=== PATIENT | male | born 1985 | race Caucasian/White ===

== ENCOUNTER 2018-07-25 16:19 | Emergency (ER) | payer SELFPAY ==
[2018-07-25] MEDS ORDERED: TETANUS & DIPHTHERIA TOX,ADULT 0.5 ML VIAL ONE (16:50)
--- NOTE | 2018-07-25 17:29 | RAD REPORT ---
EXAM DESCRIPTION: RAD - Knee Right 3 View - 07/25/2018 5:22 pm CLINICAL HISTORY: Right knee pain FINDINGS: No fracture or dislocation is seen. A laceration involves the medial soft tissues. A radiopaque foreign body is not seen
[2018-07-25] MEDS ORDERED: HYDROCODONE/APAP 10/325 TAB ONE (18:07)
[2018-07-25] MEDS ORDERED: BUPIVACAINE 0.5% PF 10 ML VIAL ONE (18:07)
[2018-07-25] MEDS ORDERED: LIDOCAINE 1% MPF 30 ML VIAL ONE (18:08)
[2018-07-25] MEDS ORDERED: LIDOCAINE 2% W/EPI 1:200,000 MPF 20 ML VIAL IM ONE (19:27)
--- NOTE | 2018-07-25 19:54 | ER ---
Nurse's Notes [facility] Emergency Department Name: Michael Degroot Age: 32 yrs Sex: Male : 1985 Arrival Date: 07/25/2018 Time: 16:20 Bed Treatment Private MD: Diagnosis: Laceration without foreign body, right lower leg Presentation: 07/25 16:25 Presenting complaint: Patient states: He was using a chain saw to cut a tree and it aj1 kicked back and hit him in the right knee approximately 1 hour ago. Laceration noted to right knee, bleeding lightly. Transition of care: patient was not received from another setting of care. Onset of symptoms was July 25, 2018 at 15:30. Risk Assessment: Do you want to hurt yourself or someone else? Patient reports no desire to harm self or others. Initial Sepsis Screen: Does the patient meet any 2 criteria? HR > 90 bpm. Does the patient have a suspected source of infection? Yes: Skin breakdown/wound. Care prior to arrival: None. 16:25 Method Of Arrival: Wheelchair aj1 16:25 Acuity: DARVIN 4 aj1 20:26 Complicating Factors: There are no complicating factors for this patient. bb Triage Assessment: 16:27 General: Appears in no apparent distress. uncomfortable, Behavior is calm, cooperative, aj1 appropriate for age. Pain: Complains of pain in right knee Pain currently is 8 out of 10 on a pain scale. Neuro: Level of Consciousness is awake, alert, obeys commands. Cardiovascular: Patient's skin is warm and dry. Respiratory: Airway is patent Respiratory effort is even, unlabored, Respiratory pattern is regular, symmetrical. Injury Description: Laceration sustained to right knee is bleeding a small amount. Historical: - Allergies: 16:27 No Known Allergies; aj1 - Home Meds: 16:27 None [Active]; aj1 - PMHx: 16:27 Hepatitis; aj1 - PSHx: 16:27 eye surgery; aj1 - Immunization history:: Last tetanus immunization: < 5 years ago. - Social history:: Smoking status: Patient uses tobacco products, smokes one-half pack cigarettes per day, Patient/guardian denies using alcohol, street drugs, The patient lives with family. - Ebola Screening: : Patient denies travel to an Ebola-affected area in the 21 days before illness onset. - Family history:: not pertinent. Screenin:29 Abuse screen: Denies threats or abuse. Denies injuries from another. Nutritional ed1 screening: No deficits noted. Tuberculosis screening: No symptoms or risk factors identified. Fall Risk No fall in past 12 months (0 pts). No secondary diagnosis (0 pts). No IV (0 pts). Ambulatory Aid- Crutches/Cane/Walker (15 pts). Gait- Impaired (20 pts.). Mental Status- Oriented to own ability (0 pts). Total Monique Fall Scale indicates Low Risk Score (25-44 pts). Fall prevention measures have been instituted. Side Rails Up X 2 Frequent Obs/Assesments occuring Family Present and informed to notify staff if they need to leave bedside As available Patient and Family Educated on Fall Prevention Program and strategies. Assessment: 16:29 General: Appears uncomfortable, Behavior is calm, cooperative. Pain: Complains of pain ed1 in right knee Pain radiates to right leg Pain currently is 8 out of 10 on a pain scale. Quality of pain is described as sharp, throbbing, Pain began 30 min ago. Is continuous. Neuro: Level of Consciousness is awake, alert, obeys commands, Oriented to person, place, time, situation. Cardiovascular: Denies chest pain, Heart tones S1 S2 present. Respiratory: Airway is patent Respiratory effort is even, unlabored, Respiratory pattern is regular, symmetrical, Breath sounds are clear bilaterally. GI: No signs and/or symptoms were reported involving the gastrointestinal system. : No signs and/or symptoms were reported regarding the genitourinary system. EENT: No signs and/or symptoms were reported regarding the EENT system. Derm: Skin is healthy with good turgor, Skin is dry, Skin is normal, Skin temperature is warm. Musculoskeletal: Circulation, motion, and sensation intact. Range of motion: limited in right knee. Injury Description: Laceration sustained to right knee is jagged, 7.6 to 20 cm long, was sustained 30-60 minutes ago. is bleeding a small amount. 16:32 General: The previous assessment is accurate, call light remains within reach. . ss 18:11 Reassessment: Patient appears in no apparent distress at this time. No changes from ed1 previously documented assessment. Patient and/or family updated on plan of care and expected duration. Pain level reassessed. Patient is alert, oriented x 3, equal unlabored respirations, skin warm/dry/pink. Patient states symptoms have not improved. 19:38 Reassessment: Dr Plaza at bedside for suturing of wound to right knee. Pt is A\T\O x 4, bb resp unlabored, tolerating procedure well. 20:24 Reassessment: Patient and/or family updated on plan of care and expected duration. Pain bb level reassessed. Patient is alert, oriented x 3, equal unlabored respirations, skin warm/dry/pink. moreno in place well approximated, triple antibiotic applied to stapled area covered in 4x4s and kerlix and knee immobilizer applied. Pt verbalized understanding of and agrees to plan of care discharge instructions given pt assisted to exit via wheelchair accompanied by family. Vital Signs: 16:27 BP 138 / 91; Pulse 111; Resp 18; Temp 97.9; Pulse Ox 99% on R/A; Weight 92.99 kg (R); aj1 Height 6 ft. 2 in. (187.96 cm) (R); Pain 8/10; 18:11 BP 132 / 85; Pulse 90; Resp 17; Pulse Ox 100% on R/A; Pain 8/10; ed1 20:26 BP 127 / 60; Pulse 93; Resp 16 S; Temp 97.5(O); Pulse Ox 95% on R/A; bb 16:27 Body Mass Index 26.32 (92.99 kg, 187.96 cm) aj1 ED Course: 16:20 Patient arrived in ED. rg4 16:26 Triage completed. aj1 16:27 Arm band placed on Patient placed in an exam room. aj1 16:29 Patient has correct armband on for positive identification. Bed in low position. Call ed1 light in reach. Side rails up X 1. Adult w/ patient. 16:34 Emiliano Grover NP is PHCP. pm1 16:35 Moshe Ramirez MD is Attending Physician. pm1 16:38 Leila Reyes LVN is Primary Nurse. ed1 17:21 X-ray completed. Portable x-ray completed in exam room. Patient tolerated procedure ml well. 17:22 Knee Right 3 View XRAY In Process Unspecified. EDMS 18:11 Resting quietly. Awaiting: Laceration repair. ed1 19:39 Primary Nurse role handed off by Leila Reyes LVN bb 19:39 Kayla Antunez RN is Primary Nurse. bb 20:23 Assist provider with laceration repair on right knee that was between 12.6 to 20 cm bb using moreno. Set up tray. Performed by Moshe Ramirez MD Dressed with 4X4s, Kerlix, Patient tolerated well. Patient did not have IV access during this emergency room visit. Administered Medications: 16:49 Drug: Tetanus-Diphtheria Toxoid Adult 0.5 ml {Director Of Alumni Relations: [employer]. Exp: ed1 07/13/2019. Lot #: [id number]. } Route: IM; Site: left deltoid; 18:06 Follow up: Response: No adverse reaction ed1 18:07 Drug: [place] 10 mg-325 mg 1 tabs Route: PO; ed1 20:28 Follow up: Response: No adverse reaction bb 18:07 Drug: Bupivacaine (0.5 %) 10 ml Volume: 10 ml; Route: Infiltration; Site: wound; ed1 18:07 Drug: Lidocaine (1 %) 5 ml Volume: 5 ml; Route: Infiltration; Site: wound; ed1 Outcome: 19:53 Discharge ordered by . ma2 20:27 Discharged to home ambulatory, via wheelchair, with family. bb 20:27 Condition: stable 20:27 Discharge instructions given to patient, Instructed on discharge instructions, follow up and referral plans. no driving heavy equipment, medication usage, wound care, Demonstrated understanding of instructions, follow-up care, medications, wound care, Prescriptions given X 2. 20:32 Patient left the ED. bb Signatures: Dispatcher [employer] EDMS Bonnie Romano RN RN aj1 Kayla Antunez, Itzel Azul RN, Shelby, RN RN Leila Reyes LVN LVN ed1 Emiliano Grover, INSTRUCTIONAL SUPPORT SERVICES DIRECTOR INSTRUCTIONAL SUPPORT SERVICES DIRECTOR pm1 Jamee Madden rg4 Moshe Ramirez MD MD ma2
--- NOTE | 2018-07-25 19:54 | EDPHYS ---
Physician Documentation [facility] Name: Michael Degroot Age: 32 yrs Sex: Male : 1985 Arrival Date: 07/25/2018 Time: 16:20 Bed Treatment Private MD: ED Physician Moshe Ramirez HPI: 07/25 19:43 This 32 yrs old Male presents to ER via Wheelchair with complaints of ma2 Laceration To Leg. 19:43 The patient has a laceration occurred at work. The laceration(s) is(are) located on the ma2 right leg. Onset: The symptoms/episode began/occurred suddenly, 2 hour(s) ago. Associated signs and symptoms: Pertinent positives: Pertinent negatives: deformity, heavy bleeding, numbness distal to injury. The patient has not experienced similar symptoms in the past. sustained injury with a chain cutter and has a laceration over right knee, able to range the knee joint with no issure . Historical: - Allergies: 16:27 No Known Allergies; aj1 - Home Meds: 16:27 None [Active]; aj1 - PMHx: 16:27 Hepatitis; aj1 - PSHx: 16:27 eye surgery; aj1 - Immunization history:: Last tetanus immunization: < 5 years ago. - Social history:: Smoking status: Patient uses tobacco products, smokes one-half pack cigarettes per day, Patient/guardian denies using alcohol, street drugs, The patient lives with family. - Ebola Screening: : Patient denies travel to an Ebola-affected area in the 21 days before illness onset. - Family history:: not pertinent. ROS: 19:43 Constitutional: Negative for fever, chills, and weight loss, Cardiovascular: Negative ma2 for chest pain, palpitations, and edema, Respiratory: Negative for shortness of breath, cough, wheezing, and pleuritic chest pain, Abdomen/GI: Negative for abdominal pain, nausea, diarrhea, and constipation, Back: Negative for injury and pain, Neuro: Negative for headache, weakness, numbness, tingling, and seizure, Psych: Negative for depression, anxiety, suicide ideation, homicidal ideation, and hallucinations, Allergy/Immunology: Negative for hives, rash, and allergies, Endocrine: Negative for neck swelling, polydipsia, polyuria, polyphagia, and marked weight changes. 19:43 Skin: Positive for laceration(s), of the right leg, Negative for abscesses, diaphoresis, discoloration. Exam: 19:43 Constitutional: This is a well developed, well nourished patient who is awake, alert, ma2 and in no acute distress. Eyes: Pupils equal round and reactive to light, extra-ocular motions intact. Lids and lashes normal. Conjunctiva and sclera are non-icteric and not injected. Cornea within normal limits. Periorbital areas with no swelling, redness, or edema. ENT: Nares patent. No nasal discharge, no septal abnormalities noted. Tympanic membranes are normal and external auditory canals are clear. Oropharynx with no redness, swelling, or masses, exudates, or evidence of obstruction, uvula midline. Mucous membranes moist. Neck: Trachea midline, no thyromegaly or masses palpated, and no cervical lymphadenopathy. Supple, full range of motion without nuchal rigidity, or vertebral point tenderness. No Meningismus. Cardiovascular: Regular rate and rhythm with a normal S1 and S2. No gallops, murmurs, or rubs. Normal PMI, no JVD. No pulse deficits. Back: No spinal tenderness. No costovertebral tenderness. Full range of motion. Neuro: Awake and alert, GCS 15, oriented to person, place, time, and situation. Cranial nerves II-XII grossly intact. Motor strength 5/5 in all extremities. Sensory grossly intact. Cerebellar exam normal. Normal gait. 19:43 Musculoskeletal/extremity: ROM: intact in all extremities, Circulation is intact in all extremities. Sensation intact. Compartment Syndrome exam of affected extremity: is normal. Tendon exam: specific tendon testing normal through active and passive range of motion irregular laceration of skin above right knee, able to range the joint with no pain, 12 cm . Vital Signs: 16:27 BP 138 / 91; Pulse 111; Resp 18; Temp 97.9; Pulse Ox 99% on R/A; Weight 92.99 kg (R); aj1 Height 6 ft. 2 in. (187.96 cm) (R); Pain 8/10; 18:11 BP 132 / 85; Pulse 90; Resp 17; Pulse Ox 100% on R/A; Pain 8/10; ed1 20:26 BP 127 / 60; Pulse 93; Resp 16 S; Temp 97.5(O); Pulse Ox 95% on R/A; bb 16:27 Body Mass Index 26.32 (92.99 kg, 187.96 cm) aj1 Laceration: 19:43 Wound Repair of 15cm ( 5.9in ) subcutaneous laceration to right leg. Distal ma2 neuro/vascular/tendon intact. Anesthesia: Local anesthetic administered with 15 mls of 1% lidocaine w/ Epi. Wound prep: Extensive cleansing, Wound irrigation, Wound margin revised, Wound debrided. Skin closed with 15 1-0 William using simple sutures and sterile technique. Dressed with 4x4's, Kerlix, pressure dressing. Patient tolerated well. MDM: 16:35 Patient medically screened. pm1 19:43 Differential diagnosis: superficial laceration, contusion. no tendon or vascular ma2 injury. Data reviewed: vital signs, nurses notes, EMS record. Counseling: I had a detailed discussion with the patient and/or guardian regarding: the historical points, exam findings, and any diagnostic results supporting the discharge/admit diagnosis, the presence of at least one elevated blood pressure reading (>120/80) during this emergency department visit. Response to treatment: the patient's symptoms have mildly improved after treatment, the patient's symptoms have markedly improved after treatment. 07/25 16:38 Order name: Knee Right 3 View XRAY; Complete Time: 17:33 pm1 07/25 18:00 Order name: Dressing - Wound; Complete Time: 20:22 pm1 07/25 18:00 Order name: Gloves, Sterile; Complete Time: 18:07 pm1 07/25 18:00 Order name: Setup Suture Tray; Complete Time: 18:07 pm1 07/25 19:07 Order name: Wound Care; Complete Time: 20:22 pm1 07/25 19:43 Order name: Dressing - Wound: please apply dressing with triple antibiotics ; Complete ma2 Time: 20:22 07/25 19:55 Order name: Dressing - Wound: pressure bandage; Complete Time: 20:22 ma2 07/25 19:55 Order name: Knee Immobilizer; Complete Time: 20:23 ma2 Administered Medications: 16:49 Drug: Tetanus-Diphtheria Toxoid Adult 0.5 ml {R Developer: [employer]. Exp: ed1 07/13/2019. Lot #: [id number]. } Route: IM; Site: left deltoid; 18:06 Follow up: Response: No adverse reaction ed1 18:07 Drug: [place] 10 mg-325 mg 1 tabs Route: PO; ed1 20:28 Follow up: Response: No adverse reaction bb 18:07 Drug: Bupivacaine (0.5 %) 10 ml Volume: 10 ml; Route: Infiltration; Site: wound; ed1 18:07 Drug: Lidocaine (1 %) 5 ml Volume: 5 ml; Route: Infiltration; Site: wound; ed1 Disposition: 18 19:53 Discharged to Home. Impression: Laceration without foreign body, right lower leg. - Condition is Stable. - Prescriptions for Clindamycin HCl 300 mg Oral Capsule - take 1 capsule by ORAL route every 6 hours for 10 days; 40 capsule. Tylenol- Codeine #3 300-30 mg Oral Tablet - take 2 tablet by ORAL route every 6 hours As needed; 30 tablet. - Medication Reconciliation Form, Thank You Letter, Antibiotic Education, Prescription Opioid Use form. - Follow up: Private Physician; When: Tomorrow; Reason: Continuance of care. - Problem is new. - Symptoms have improved. - Notes: remove william in 2 weeks Signatures: Dispatcher [employer] EDMS Bonnie Romano RN RN aj1 Kayla Antunez RN RN bb Leila Reyes, TRUST VAULT CUSTODIAN TRUST VAULT CUSTODIAN ed1 Emiliano Grover, ИВАН ASSOCIATE PROFESSOR OF SOCIOLOGY pm1 Moshe Ramirez MD MD ma2 Corrections: (The following items were deleted from the chart) 20:32 19:53 07/25/2018 19:53 Discharged to Home. Impression: Laceration without foreign body, bb right lower leg. Condition is Stable. Forms are Medication Reconciliation Form, Thank You Letter, Antibiotic Education, Prescription Opioid Use. Follow up: Private Physician; When: Tomorrow; Reason: Continuance of care. Problem is new. Symptoms have improved. ma2
== END 2018-07-25 20:32 | disposition home or self-care (01) ==
LOC: ER 16:19
PROC: 0JQN0ZZ Repair Right Lower Leg Subcutaneous Tissue and Fascia, Open Approach (ICD-10-PCS; principal; 2018-07-25)
DX: S81.811A Laceration without foreign body, right lower leg, initial encounter (principal); W27.8XXA Contact with other nonpowered hand tool, initial encounter; Y93.9 Activity, unspecified; Y92.89 Other specified places as the place of occurrence of the external cause; Y99.8 Other external cause status; Z23 Encounter for immunization; F17.210 Nicotine dependence, cigarettes, uncomplicated
CPT/HCPCS: 90714; 99284

== ENCOUNTER 2019-03-10 13:26 | Emergency (ER) | payer SELFPAY ==
--- NOTE | 2019-03-10 13:56 | EDPHYS ---
Physician Documentation [facility] Name: Michael Degroot Age: 33 yrs Sex: Male : 1985 Arrival Date: 03/10/2019 Time: 13:29 Bed 25 Private MD: ED Physician David Vázquez HPI: 03/10 16:05 This 33 yrs old Male presents to ER via Ambulatory with complaints of Knot On gs Head. 16:05 The patient presents with an abscess of the left occipital area. Description: The gs affected area is small, confluent, draining. Onset: The symptoms/episode began/occurred 3 day(s) ago. Possible cause(s): unknown. Associated signs and symptoms: Pertinent positives: drainage, Pertinent negatives: fever. Modifying factors: the symptoms are aggravated by squeezing the lesion and expressing the contents, touching. Severity of symptoms: At their worst the symptoms were moderate, in the emergency department the symptoms are unchanged. The patient has not experienced similar symptoms in the past. Historical: - Allergies: 13:37 Tetanus-Diphtheria Toxoids-Td; sg - Home Meds: 13:37 None [Active]; sg - PMHx: 13:37 Hepatitis; sg - PSHx: 13:37 None; sg - Immunization history:: Adult Immunizations up to date. - Social history:: Smoking status: Patient/guardian denies using tobacco. - Ebola Screening: : Patient negative for fever greater than or equal to 101.5 degrees Fahrenheit, and additional compatible Ebola Virus Disease symptoms Patient denies exposure to infectious person Patient denies travel to an Ebola-affected area in the 21 days before illness onset No symptoms or risks identified at this time. ROS: 16:05 All other systems are negative. gs Exam: 16:05 Eyes: Pupils equal round and reactive to light, extra-ocular motions intact. Lids and gs lashes normal. Conjunctiva and sclera are non-icteric and not injected. Cornea within normal limits. Periorbital areas with no swelling, redness, or edema. ENT: Nares patent. No nasal discharge, no septal abnormalities noted. Tympanic membranes are normal and external auditory canals are clear. Oropharynx with no redness, swelling, or masses, exudates, or evidence of obstruction, uvula midline. Mucous membranes moist. Neck: Trachea midline, no thyromegaly or masses palpated, and no cervical lymphadenopathy. Supple, full range of motion without nuchal rigidity, or vertebral point tenderness. No Meningismus. Chest/axilla: Normal chest wall appearance and motion. Nontender with no deformity. No lesions are appreciated. Cardiovascular: Regular rate and rhythm with a normal S1 and S2. No gallops, murmurs, or rubs. Normal PMI, no JVD. No pulse deficits. Respiratory: Lungs have equal breath sounds bilaterally, clear to auscultation and percussion. No rales, rhonchi or wheezes noted. No increased work of breathing, no retractions or nasal flaring. Abdomen/GI: Soft, non-tender, with normal bowel sounds. No distension or tympany. No guarding or rebound. No evidence of tenderness throughout. Back: No spinal tenderness. No costovertebral tenderness. Full range of motion. 16:05 MS/ Extremity: Pulses equal, no cyanosis. Neurovascular intact. Full, normal range of motion. Neuro: Awake and alert, GCS 15, oriented to person, place, time, and situation. Cranial nerves II-XII grossly intact. Motor strength 5/5 in all extremities. Sensory grossly intact. Cerebellar exam normal. Normal gait. 16:05 Constitutional: The patient appears alert, awake. 16:05 Head/face: Noted is swelling, tenderness. 16:05 Skin: abscess, that is small, of the left temporal area and left occipital area, with drainage, with induration. Vital Signs: 13:37 BP 142 / 94; Pulse 98; Resp 16; Temp 98.8; Pulse Ox 99% on R/A; Weight 104.33 kg (R); sg Height 6 ft. 2 in. (187.96 cm); Pain 10/10; 13:37 Body Mass Index 29.53 (104.33 kg, 187.96 cm) sg MDM: 13:50 Patient medically screened. 16:05 Data reviewed: vital signs, nurses notes. gs Administered Medications: 14:04 Drug: Bactrim (160 mg-800 mg (DS) 2 tablet Route: PO; la1 14:04 Follow up: Response: Medication administered at discharge. la1 Disposition: 03/10/19 13:55 Discharged to Home. Impression: Cutaneous abscess of head [any part, except face]. - Condition is Stable. - Discharge Instructions: Skin Abscess. - Prescriptions for Bactrim DS 800- 160 mg Oral Tablet - take 2 tablet by ORAL route every 12 hours for 10 days; 40 tablet. - Medication Reconciliation Form, Thank You Letter, Antibiotic Education, Prescription Opioid Use form. - Follow up: Private Physician; When: 2 - 3 days; Reason: Re-evaluation by your physician. Signatures: Jean Pierre Moore RN RN Russ Salgado RN RN la1 David Vázquez MD MD Corrections: (The following items were deleted from the chart) 14:05 13:55 03/10/2019 13:55 Discharged to Home. Impression: Cutaneous abscess of head [any la1 part, except face]. Condition is Stable. Forms are Medication Reconciliation Form, Thank You Letter, Antibiotic Education, Prescription Opioid Use. Follow up: Private Physician; When: 2 - 3 days; Reason: Re-evaluation by your physician. gs
--- NOTE | 2019-03-10 13:56 | ER ---
Nurse's Notes [facility] Name: Michael Degroot Age: 33 yrs Sex: Male : 1985 Arrival Date: 03/10/2019 Time: 13:29 Bed 25 Private MD: Diagnosis: Cutaneous abscess of head [any part, except face] Presentation: 03/10 13:36 Presenting complaint: Patient states: Left sided head and neck swelling, reports having sg drainage as well with redness for a couple days now. Transition of care: patient was not received from another setting of care. Onset of symptoms was March 10, 2019. Risk Assessment: Do you want to hurt yourself or someone else? Patient reports no desire to harm self or others. Initial Sepsis Screen: Does the patient meet any 2 criteria? No. Patient's initial sepsis screen is negative. Does the patient have a suspected source of infection? Yes: Skin breakdown/wound. Care prior to arrival: None. 13:36 Method Of Arrival: Ambulatory sg 13:36 Acuity: DARVIN 4 sg Historical: - Allergies: 13:37 Tetanus-Diphtheria Toxoids-Td; sg - Home Meds: 13:37 None [Active]; sg - PMHx: 13:37 Hepatitis; sg - PSHx: 13:37 None; sg - Immunization history:: Adult Immunizations up to date. - Social history:: Smoking status: Patient/guardian denies using tobacco. - Ebola Screening: : Patient negative for fever greater than or equal to 101.5 degrees Fahrenheit, and additional compatible Ebola Virus Disease symptoms Patient denies exposure to infectious person Patient denies travel to an Ebola-affected area in the 21 days before illness onset No symptoms or risks identified at this time. Screenin:41 Abuse screen: Denies threats or abuse. Nutritional screening: No deficits noted. la1 Tuberculosis screening: No symptoms or risk factors identified. 13:56 Fall Risk None identified. la1 Assessment: 13:40 General: Appears in no apparent distress. Behavior is calm, cooperative. Pain: la1 Complains of pain in left temporal area and left occipital area. Neuro: Level of Consciousness is awake, alert, obeys commands, Oriented to person, place, time, situation. Cardiovascular: Capillary refill < 3 seconds Patient's skin is warm and dry. Respiratory: Airway is patent Respiratory effort is even, unlabored, Respiratory pattern is regular, symmetrical. GI: No signs and/or symptoms were reported involving the gastrointestinal system. : No signs and/or symptoms were reported regarding the genitourinary system. Derm: Abscess located on left temporal area is quarter sized, has purulent drainage. Vital Signs: 13:37 BP 142 / 94; Pulse 98; Resp 16; Temp 98.8; Pulse Ox 99% on R/A; Weight 104.33 kg (R); sg Height 6 ft. 2 in. (187.96 cm); Pain 10/10; 13:37 Body Mass Index 29.53 (104.33 kg, 187.96 cm) ED Course: 13:29 Patient arrived in ED. tw3 13:32 Russ Salgado RN is Primary Nurse. la1 13:33 David Vázquez MD is Attending Physician. 13:37 Triage completed. sg 13:37 Arm band placed on. sg 13:42 Call light in reach. Side rails up X 1. la1 13:55 No provider procedures requiring assistance completed. Patient did not have IV access la1 during this emergency room visit. Administered Medications: 14:04 Drug: Bactrim (160 mg-800 mg (DS) 2 tablet Route: PO; la1 14:04 Follow up: Response: Medication administered at discharge. la1 Outcome: 13:55 Discharge ordered by . 13:56 Discharged to home ambulatory. la1 13:56 Condition: stable 13:56 Discharge instructions given to patient, Instructed on discharge instructions, follow up and referral plans. medication usage, Demonstrated understanding of instructions, follow-up care, medications, Prescriptions given X 1. 14:05 Patient left the ED. la1 Signatures: Jean Pierre Moore RN RN Russ Salgado RN RN la1 Wade, Tia tw3 David Vázquez MD MD
[2019-03-10] MEDS ORDERED: SMZ./TMP. 800/160 MG TABLET ONE (14:16)
== END 2019-03-10 14:05 | disposition home or self-care (01) ==
LOC: ER 13:26
DX: L02.811 Cutaneous abscess of head [any part, except face] (principal); Z88.7 Allergy status to serum and vaccine
CPT/HCPCS: 99283

== ENCOUNTER 2019-03-12 12:20 | Emergency (ER) | payer SELFPAY ==
[2019-03-12 13:24] LABS: Protime INR 0.99
[2019-03-12 13:28] LABS: Absolute Lymphocytes (CBC) 1.7 K/uL (0.7-4.9); Absolute Monocytes 0.3 K/uL (0.1-1.3); Absolute Neutrophil 2.2 K/uL (1.8-8.0); Basophils % 0.5 % (0-1.3); Eosinophils % 2.5 % (0-4.4); Hematocrit 41.1 % (39.6-49.0); Lymphocytes % 39.7 % (15.3-44.8); MPV 8.4 fL (7.6-11.3); Monocytes % 6.6 % (3.3-12.3); RBC Red Blood Cell Count 4.54 M/uL (4.33-5.43)
[2019-03-12 13:32] LABS: Barbiturates NEGATIVE (NEGATIVE); Benzodiazepines NEGATIVE (NEGATIVE); Cocaine NEGATIVE (NEGATIVE); METHAMPHETAM POSITIVE (NEGATIVE); Methadone NEGATIVE (NEGATIVE); Opiates NEGATIVE (NEGATIVE); Phencyclidine NEGATIVE (NEGATIVE); THC Cannibis POSITIVE (NEGATIVE)
[2019-03-12 13:41] LABS: ALT/SGPT 23 U/L (12-78); AST/SGOT 13 U/L (15-37); Albumin 3.4 g/dL (3.4-5.0); Alkaline Phosphatase 64 U/L (45-117); BUN Blood Urea Nitrogen 16 mg/dL (7-18); Bicarbonate 30 mmol/L (21-32); Bilirubin Direct 0.2 mg/dL (0-0.2); Bilirubin Total 0.4 mg/dL (0.2-1.0); Glucose Level 76 mg/dL (74-106); Potassium 4.2 mmol/L (3.5-5.1); Protein, Total 7.2 g/dL (6.4-8.2); Sodium Level 143 mmol/L (136-145)
--- NOTE | 2019-03-12 15:09 | EKG ---
Test Date: 2019-03-12 Test Time: 13:29:17 Flight Instructor: JONELLE/S MEASUREMENT RESULTS: Intervals: Rate: 80 WI: 132 QRSD: 82 QT: 348 QTc: 401 Gardner: P: 44 WI: 132 QRS: 68 T: 50 INTERPRETIVE STATEMENTS: Normal sinus rhythm Normal ECG No previous ECG available for comparison Electronically Signed On 03-12-19 15:08:19 CDT by Tim Ortega
[2019-03-12 15:37] LABS: Urine Blood NEGATIVE (NEG); Urine Glucose NEGATIVE (NEG); Urine Protein NEGATIVE (NEG)
[2019-03-12] MEDS ORDERED: NICOTINE 21 MG/PAT TD ONE (16:01)
--- NOTE | 2019-03-12 17:14 | EDPHYS ---
Physician Documentation [facility] Name: Michael Degroot Age: 33 yrs Sex: Male : 1985 Arrival Date: 03/12/2019 Time: 12:22 Bed 14 Private MD: ED Physician Breezy Zaidi HPI: 03/12 14:35 This 33 yrs old Male presents to ER via Ambulatory with complaints of Psych jr8 Problem. 14:35 The patient presents to the emergency department with depression, paranoia, suicide jr8 ideation, but the patient has no formulated plan. Onset: The symptoms/episode began/occurred gradually, 7 month(s) ago, and became worse and became persistent. Past psychiatric history: Prior diagnosis: depression, Psychiatric medications include: none. Associated signs and symptoms: The patient has no apparent associated signs or symptoms. Severity of symptoms: At their worst the symptoms were moderate in the emergency department the symptoms are unchanged. The patient has not experienced similar symptoms in the past. The patient has not recently seen a physician. Patient stated that he has been hearing and seeing individuals that friends have witnessed and are not really present. Stated that it is now to the point where he is strongly thinking of committing suicide because he cannot stop the voices and seeing them. Stated that the voices are often aggressive in nature . Historical: - Allergies: 12:36 Tetanus-Diphtheria Toxoids-Td; hb - Home Meds: 12:36 None [Active]; hb - PMHx: 12:36 Hepatitis; hb - PSHx: 12:36 None; hb - Immunization history:: Adult Immunizations up to date. - Social history:: Smoking status: Patient uses tobacco products, smokes one pack cigarettes per day. - Ebola Screening: : No symptoms or risks identified at this time. ROS: 14:35 Eyes: Negative for injury, pain, redness, and discharge, ENT: Negative for injury, jr8 pain, and discharge, Neck: Negative for injury, pain, and swelling, Cardiovascular: Negative for chest pain, palpitations, and edema, Respiratory: Negative for shortness of breath, cough, wheezing, and pleuritic chest pain, Abdomen/GI: Negative for abdominal pain, nausea, vomiting, diarrhea, and constipation, Back: Negative for injury and pain, MS/Extremity: Negative for injury and deformity, Skin: Negative for injury, rash, and discoloration, Neuro: Negative for headache, weakness, numbness, tingling, and seizure. 14:35 Psych: Positive for depression, auditory hallucinations, visual hallucinations, suicidal ideation. Exam: 14:35 Eyes: Pupils equal round and reactive to light, extra-ocular motions intact. Lids and jr8 lashes normal. Conjunctiva and sclera are non-icteric and not injected. Cornea within normal limits. Periorbital areas with no swelling, redness, or edema. ENT: Nares patent. No nasal discharge, no septal abnormalities noted. Tympanic membranes are normal and external auditory canals are clear. Oropharynx with no redness, swelling, or masses, exudates, or evidence of obstruction, uvula midline. Mucous membranes moist. Neck: Trachea midline, no thyromegaly or masses palpated, and no cervical lymphadenopathy. Supple, full range of motion without nuchal rigidity, or vertebral point tenderness. No Meningismus. Cardiovascular: Regular rate and rhythm with a normal S1 and S2. No gallops, murmurs, or rubs. Normal PMI, no JVD. No pulse deficits. Respiratory: Lungs have equal breath sounds bilaterally, clear to auscultation and percussion. No rales, rhonchi or wheezes noted. No increased work of breathing, no retractions or nasal flaring. Abdomen/GI: Soft, non-tender, with normal bowel sounds. No distension or tympany. No guarding or rebound. No evidence of tenderness throughout. Back: No spinal tenderness. No costovertebral tenderness. Full range of motion. Skin: Warm, dry with normal turgor. Normal color with no rashes, no lesions, and no evidence of cellulitis. MS/ Extremity: Pulses equal, no cyanosis. Neurovascular intact. Full, normal range of motion. Neuro: Awake and alert, GCS 15, oriented to person, place, time, and situation. Cranial nerves II-XII grossly intact. Motor strength 5/5 in all extremities. Sensory grossly intact. Cerebellar exam normal. Normal gait. 14:35 Psych: Behavior/mood is cooperative, suicidal, Affect is calm, Oriented to person, place, time, Patient has no thoughts/intents to harm self or others. Judgement / Insight is impaired. Memory is normal. Delusions/hallucinations are present and described as see HPI. Vital Signs: 12:33 BP 124 / 75; Pulse 95; Resp 16; Temp 98.2; Pulse Ox 100% on R/A; Weight 104.33 kg; hb Height 6 ft. 2 in. (187.96 cm); Pain 0/10; 19:22 BP 123 / 78; Pulse 84; Resp 16; Temp 97.8(O); Pulse Ox 99% on R/A; mt 03/13 00:36 BP 118 / 69; Pulse 90; Resp 16; Pulse Ox 98% on R/A; mt 06:24 BP 132 / 74; Pulse 76; Resp 14; Pulse Ox 97% on R/A; mt 10:22 BP 126 / 68; Pulse 72; Resp 16; Temp 98.0; Pulse Ox 99% on R/A; Pain 0/10; em1 11:50 BP 110 / 66; Pulse 61; Resp 16; Temp 98.0; Pulse Ox 100% on R/A; Pain 0/10; em1 15:15 BP 119 / 71; Pulse 65; Resp 17; Pulse Ox 99% on R/A; jb1 18:01 BP 122 / 69; Pulse 69; Resp 18; Pulse Ox 100% on R/A; jb1 23:52 BP 110 / 63; Pulse 69; Resp 18; Pulse Ox 98% on R/A; Pain 0/10; ea 03/14 07:31 BP 118 / 72; Pulse 70; Resp 18; Temp 97.8(O); Pulse Ox 99% on R/A; mh5 11:06 BP 112 / 75; Pulse 72; Resp 18; Temp 97.8(O); Pulse Ox 99% on R/A; mh5 15:02 BP 116 / 68; Pulse 62; Resp 17; Temp 97.9(TE); Pulse Ox 99% on R/A; 5 03/12 12:33 Body Mass Index 29.53 (104.33 kg, 187.96 cm) hb MDM: 03/12 12:37 Patient medically screened. 8 17:14 Data reviewed: vital signs, nurses notes, lab test result(s), EKG. Data interpreted: jr8 Pulse oximetry: on room air is 100 %. Interpretation: normal. Counseling: I had a detailed discussion with the patient and/or guardian regarding: the historical points, exam findings, and any diagnostic results supporting the discharge/admit diagnosis, lab results, the need to transfer to another facility, [facility] does not immediately have the required specialist. 03/13 04:00 ED course: Patient sleeping in exam room. cp 11:33 ED course: Pt still waiting on psych transfer, still reports hallucination and rn paranoia, thinks people are following him for 6 months, may be drug induced over time, and doesn't feel safe with outpt w/u, still reports suicidal ideation.. 03/14 09:48 ED course: Pt still waiting on transfer, has behaved well, sleeping comfortably, normal rn vitals. . 09:50 ED course: Pt states feels less like hurting himself but concerned if goes out into rn public will feel paranoia and want to hurt himself again. . 11:34 ED course: Accepted for transfer to [facility] . rn 15:45 ED course: Patient resting comfortably and watching TV in exam room. Patient requests cp nicotine patch. 03/12 12:48 Order name: Acetaminophen; Complete Time: 13:46 [facility] 03/12 12:48 Order name: Basic Metabolic Panel; Complete Time: 13:46 [facility] 03/12 12:48 Order name: CBC with Diff; Complete Time: 13:31 [facility] 03/12 12:48 Order name: ETOH Level; Complete Time: 13:46 [facility] 03/12 12:48 Order name: Hepatic Function; Complete Time: 13:46 [facility] 03/12 12:48 Order name: PT-INR; Complete Time: 13:26 [facility] 03/12 12:48 Order name: Ptt, Activated; Complete Time: 13:26 [facility] 03/12 12:48 Order name: Salicylate; Complete Time: 13:46 [facility] 03/12 12:48 Order name: Urine Drug Screen; Complete Time: 13:46 [facility] 03/12 15:18 Order name: Urine Dipstick--Ancillary (enter results); Complete Time: 15:40 bd 03/12 12:48 Order name: EKG; Complete Time: 12:49 [facility] 03/12 12:48 Order name: EKG - Nurse/Tech; Complete Time: 17:17 [facility] 03/12 12:48 Order name: Labs collected and sent; Complete Time: 13:16 [facility] 03/12 12:48 Order name: Urine Dipstick-Ancillary (obtain specimen); Complete Time: 13:16 jr8 03/12 13:18 Order name: Diet Regular; Complete Time: 13:19 5 03/13 07:28 Order name: Diet Regular; Complete Time: 07:29 bd 03/13 10:15 Order name: Diet Finger Food; Complete Time: 10:16 em1 03/14 07:28 Order name: Diet Regular; Complete Time: 07:28 5 03/14 10:48 Order name: Diet Regular; Complete Time: 10:49 5 03/14 15:34 Order name: Diet Regular; Complete Time: 15:35 5 Administered Medications: 03/12 15:52 Drug: Nicotine 21 mg/24 hr 1 patches Route: Transdermal; Site: anterior chest wall; 03/13 11:52 Not Given (Patient Refused; wrong order): Benadryl 50 mg IVP once 11:52 Not Given (wrong order): Motrin 600 mg PO once 11:52 Drug: Motrin 800 mg Route: PO; 11:53 Follow up: Response: No adverse reaction; Marked relief of symptoms 12:42 Follow up: Response: No adverse reaction; Marked relief of symptoms 11:53 Drug: Benadryl 50 mg Route: IM; Site: right ventrogluteal; 11:53 Follow up: Response: No adverse reaction; Marked relief of symptoms 12:42 Follow up: Response: No adverse reaction; Marked relief of symptoms 03/14 15:48 Drug: Nicoderm CQ 21 mg/24 hr 1 patches {Note: left upper arm.} Route: Transdermal; tw2 Site: affected area; Disposition: 18:01 Co-signature as Attending Physician, Breezy Zaidi MD. rn Disposition: 03/12/19 17:14 Transfer ordered to [facility]. Diagnosis are Suicidal ideations, Visual hallucinations. - Reason for transfer: Higher level of care. - Accepting physician is Dr. Canada. - Condition is Stable. - Problem is new. - Symptoms are unchanged. Signatures: Dispatcher [employer] EDMS Fabiana Loco RN RN ch Myers, Amanda, RN RN aj Nieto, Roman, MD MD rn Smirch, Shelby, RN RN ss Roszak, Josh, PA PA [facility] Kody Paulino PA PA cp Baxter, Heather, RN RN Merno Holman RN RN tw2 Corrections: (The following items were deleted from the chart) 03/13 12:43 03/12 12:48 IV Saline Lock ordered. jr8 03/14 16:09 03/12 17:14 03/12/2019 17:14 Transfer ordered to Psych Facility. Diagnosis is Suicidal rn ideations; Visual hallucinations. Reason for transfer: Higher level of care. Accepting physician is Psych. Condition is Stable. Problem is new. Symptoms are unchanged. jr8 03/14 17:00 16:09 03/12/2019 17:14 Transfer ordered to Psych Facility. Diagnosis is Suicidal ss ideations; Visual hallucinations. Reason for transfer: Higher level of care. Accepting physician is Dr. Canada. Condition is Stable. Problem is new. Symptoms are unchanged. rn
--- NOTE | 2019-03-12 17:14 | ER ---
Nurse's Notes [facility] Name: Michael Degroot Age: 33 yrs Sex: Male : 1985 Arrival Date: 03/12/2019 Time: 12:22 Bed 14 Private MD: Diagnosis: Suicidal ideations;Visual hallucinations Presentation: 03/12 12:31 Presenting complaint: Patient states: "I am feeling like I want to kill myself, people hb are out to get me, coming for me. I would crash my car into a semi." Reports meth use 3 days ago. Denies homicidal ideation/previous suicide attempts. Transition of care: patient was not received from another setting of care. Onset of symptoms was March 12, 2019. Risk Assessment: Do you want to hurt yourself or someone else? Patient reports desire/thoughts of hurting themselves or someone else. Provider notified. Care prior to arrival: None. 12:31 Method Of Arrival: Ambulatory hb 12:31 Acuity: DARVIN 2 hb 03/14 07:24 Initial Sepsis Screen: Does the patient meet any 2 criteria? No. Patient's initial tw2 sepsis screen is negative. Does the patient have a suspected source of infection? No. Patient's initial sepsis screen is negative. Historical: - Allergies: 03/12 12:36 Tetanus-Diphtheria Toxoids-Td; hb - Home Meds: 12:36 None [Active]; hb - PMHx: 12:36 Hepatitis; hb - PSHx: 12:36 None; hb - Immunization history:: Adult Immunizations up to date. - Social history:: Smoking status: Patient uses tobacco products, smokes one pack cigarettes per day. - Ebola Screening: : No symptoms or risks identified at this time. Screenin:00 Abuse screen: Denies threats or abuse. Denies injuries from another. Nutritional aj screening: No deficits noted. Tuberculosis screening: No symptoms or risk factors identified. Fall Risk None identified. Assessment: 13:00 General: Appears in no apparent distress. comfortable, Behavior is calm, cooperative, aj appropriate for age. Pain: Denies pain. Neuro: Level of Consciousness is awake, alert, obeys commands, Oriented to person, place, time, situation, Appropriate for age. Respiratory: Airway is patent Respiratory effort is even, unlabored, Respiratory pattern is regular, symmetrical. Derm: Skin is intact, is healthy with good turgor, Skin is pink, warm \\T\\ dry. normal. 14:19 Reassessment: pt's personal belongings given to pt's family (see pt's chart), witnessed aa5 by me and Osmar Mclaughlin RN. . 19:33 General: Appears in no apparent distress. comfortable, Behavior is calm, cooperative, jb4 PT reports having a spot on the side of his head that is red and inflamed. Reports being able to squeeze out puss. Provider notified. Provider at the bedside.. Pain: Denies pain. Neuro: Level of Consciousness is awake, alert, obeys commands, Oriented to person, place, time, situation. Cardiovascular: Patient's skin is warm and dry. Respiratory: Airway is patent Respiratory effort is even, unlabored, Respiratory pattern is regular, symmetrical. GI: No signs and/or symptoms were reported involving the gastrointestinal system. : No signs and/or symptoms were reported regarding the genitourinary system. EENT: No signs and/or symptoms were reported regarding the EENT system. Derm: Skin is intact, Skin is pink, warm \\T\\ dry. Abscess located on left occipital area is quarter sized. Musculoskeletal: Circulation, motion, and sensation intact. 20:30 Reassessment: Patient appears in no apparent distress at this time. Patient and/or jb4 family updated on plan of care and expected duration. Pain level reassessed. Patient is alert, oriented x 3, equal unlabored respirations, skin warm/dry/pink. 21:30 Reassessment: Patient appears in no apparent distress at this time. Patient and/or jb4 family updated on plan of care and expected duration. Pain level reassessed. Patient is alert, oriented x 3, equal unlabored respirations, skin warm/dry/pink. Pt complaining of room being too hot, door opened and fan given to the pt. 22:30 Reassessment: Patient appears in no apparent distress at this time. Patient and/or jb4 family updated on plan of care and expected duration. Pain level reassessed. Patient is alert, oriented x 3, equal unlabored respirations, skin warm/dry/pink. 23:44 Reassessment: Patient appears in no apparent distress at this time. Patient and/or jb4 family updated on plan of care and expected duration. Pain level reassessed. Pt is resting in bed with eyes closed, respirations are even and unlabored. no s/s of distress or pain noted. 03/13 00:45 Reassessment: Patient appears in no apparent distress at this time. No changes from jb4 previously documented assessment. Patient and/or family updated on plan of care and expected duration. Pain level reassessed. 01:45 Reassessment: Patient appears in no apparent distress at this time. No changes from jb4 previously documented assessment. Patient and/or family updated on plan of care and expected duration. Pain level reassessed. 02:45 Reassessment: Patient appears in no apparent distress at this time. No changes from jb4 previously documented assessment. Patient and/or family updated on plan of care and expected duration. Pain level reassessed. 03:45 Reassessment: Patient appears in no apparent distress at this time. No changes from jb4 previously documented assessment. Patient and/or family updated on plan of care and expected duration. Pain level reassessed. 04:45 Reassessment: Patient appears in no apparent distress at this time. No changes from jb4 previously documented assessment. Patient and/or family updated on plan of care and expected duration. Pain level reassessed. 05:45 Reassessment: Patient appears in no apparent distress at this time. No changes from jb4 previously documented assessment. Patient and/or family updated on plan of care and expected duration. Pain level reassessed. 06:45 Reassessment: Patient appears in no apparent distress at this time. No changes from jb4 previously documented assessment. Patient and/or family updated on plan of care and expected duration. Pain level reassessed. 08:00 Reassessment: Patient appears in no apparent distress at this time. pt denies wanting ch to harm himself or others right now. states if he could leave here "I probably shouldn't get in a car." I think the pt would not be safe if discharged. pt is quiet in room, cooperative. 09:41 Reassessment: Patient appears in no apparent distress at this time. Patient and/or ch family updated on plan of care and expected duration. Pain level reassessed. Patient is alert, oriented x 3, equal unlabored respirations, skin warm/dry/pink. pt has friend at bedside, talking quietly, no s/s of distress. pt has eaten all of breakfast, verb understanding of wait for transfer. Neuro: No deficits noted. Level of Consciousness is awake, alert, obeys commands, Oriented to person, place, time, situation. Cardiovascular: Capillary refill < 3 seconds fingers toes Patient's skin is warm and dry. Respiratory: Airway is patent Respiratory effort is even, unlabored, Respiratory pattern is regular. GI: No signs and/or symptoms were reported involving the gastrointestinal system. Derm: Skin is pink, warm \\T\\ dry. Musculoskeletal: Circulation, motion, and sensation intact. 10:52 Reassessment: Patient appears in no apparent distress at this time. pt reports ch increased anxiety and states he wants to go smoke. pt educated on tobacco free campus, cannot smoke. pt states he would not be safe if he went home, he thinks he might kill himself. denies wanting to harm self or others at this time. pt given water and snack. awaiting physician to come speak with pt. 12:41 Reassessment: Patient appears in no apparent distress at this time. Patient and/or ch family updated on plan of care and expected duration. Pain level reassessed. pt asleep in room. no s/s of distress. pt has eaten all of his lunch, is calm and cooperative. 14:28 Reassessment: Patient appears in no apparent distress at this time. No changes from previously documented assessment. 14:29 General: Appears in no apparent distress. comfortable, Behavior is calm, cooperative, hj appropriate for age. Pain: Denies pain. Neuro: Level of Consciousness is awake, alert, obeys commands, Oriented to person, place, time, situation, Appropriate for age. Cardiovascular: Capillary refill < 3 seconds Patient's skin is warm and dry. Respiratory: Airway is patent Respiratory effort is even, unlabored, Respiratory pattern is regular, symmetrical. GI: No signs and/or symptoms were reported involving the gastrointestinal system. : No signs and/or symptoms were reported regarding the genitourinary system. EENT: No signs and/or symptoms were reported regarding the EENT system. Derm: No signs and/or symptoms reported regarding the dermatologic system. Musculoskeletal: No signs and/or symptoms reported regarding the musculoskeletal system. 15:20 Reassessment: Patient appears in no apparent distress at this time. Patient is alert, ca1 oriented x 3, equal unlabored respirations, skin warm/dry/pink. 16:10 Reassessment: Patient appears in no apparent distress at this time. Patient is alert, ca1 oriented x 3, equal unlabored respirations, skin warm/dry/pink. 17:44 Reassessment: Patient appears in no apparent distress at this time. Eyes closed with ca1 equal and unlabored breathing. Skin pink, warm and dry. 19:40 Reassessment: Patient and/or family updated on plan of care and expected duration. Pain ea level reassessed. Pt resting with eyes closed. Respirations even and unlabored. Chest expansions even and symmetrical. No s/s of pain or discomfort noted at this time. 23:46 Reassessment: Patient and/or family updated on plan of care and expected duration. Pain ea level reassessed. Pt resting with eyes closed, respirations even and unlabored. Chest expansions even and symmetrical. No s/s of pain or discomfort noted at this time. 03/14 07:00 Reassessment: Patient appears in no apparent distress at this time. Patient and/or tw2 family updated on plan of care and expected duration. Pain level reassessed. Patient is alert, oriented x 3, equal unlabored respirations, skin warm/dry/pink. pt appears to be sleeping at this time. Sitter remains at bedside throughout shift. 08:00 Reassessment: Patient appears in no apparent distress at this time. Patient and/or tw2 family updated on plan of care and expected duration. Pain level reassessed. Patient is alert, oriented x 3, equal unlabored respirations, skin warm/dry/pink. 09:00 Reassessment: Patient appears in no apparent distress at this time. Patient and/or tw2 family updated on plan of care and expected duration. Pain level reassessed. Patient is alert, oriented x 3, equal unlabored respirations, skin warm/dry/pink. pt eating breakfast at this time. 10:00 Reassessment: Patient appears in no apparent distress at this time. Patient and/or tw2 family updated on plan of care and expected duration. Pain level reassessed. Patient is alert, oriented x 3, equal unlabored respirations, skin warm/dry/pink. 11:00 Reassessment: Patient appears in no apparent distress at this time. Patient and/or tw2 family updated on plan of care and expected duration. Pain level reassessed. Patient is alert, oriented x 3, equal unlabored respirations, skin warm/dry/pink. 12:05 Reassessment: paged [facility] resident controlled area checker to give doc to doc. 12:35 Reassessment: Patient appears in no apparent distress at this time. Patient and/or tw2 family updated on plan of care and expected duration. Pain level reassessed. Patient is alert, oriented x 3, equal unlabored respirations, skin warm/dry/pink. pt sitting upright talking to friend at this time. 13:00 Reassessment: Paged [facility] resident, awaiting call back for doc to doc. Called Intake with [facility] who stated that the resident may have not called back yet as they are perhaps completing rounds. 14:58 Reassessment: paged psych resident again. 15:15 Reassessment: On hold with [facility] intake as we are unable to get ahold of the [facility] resident controlled area checker despite multiple attempts to page. 15:47 Reassessment: on hold with [facility]. 17:00 Reassessment: Patient appears in no apparent distress at this time. No changes from tw2 previously documented assessment. Patient and/or family updated on plan of care and expected duration. Pain level reassessed. Patient is alert, oriented x 3, equal unlabored respirations, skin warm/dry/pink. Psych: 03/12 13:00 Subjective: Patient's mood is elevated, Delusions are denied, Hallucinations are denied aj Having thoughts of suicide. Plan for suicide is Plan is to drive his vehicle head on into a semi truck. Objective: Patient is cooperative, Speech is normal, Affect is appropriate. Interventions: Removed personal items and placed in bag. Patient placed in hospital gown. Searched person for dangerous items. Urine collected and sent for urine drug test. 03/14 07:00 Suicide Risk Assessment: Sad Person Scale: Sex of patient: Male: Score 1 point. Age of tw2 patient: Score 1 point if patient 15-34. Depression: Score 0 point if signs of depression are not present. Previous Attempt: Score 1 point if patient has previously attempted suicide. Substance Abuse: Score 0 point if patient does not abuse alcohol or drugs. Rational Thinking: Score 0 point if patient has rational thinking. Social Support: Score 0 if social support is present/available. Organized Plan: Score 1 point if patient had a plan in place. Relationship: Score 1 point if patient is , , , or for a single male Chronic Sickness: Score 0 point if patient does not have a chronic illness, debilitating, or severe disorder. TOTAL POINTS: If total points are 5-6, proposed clinical action is to strongly consider hospitalization, depending upon confidence in the follow-up arrangement. Implement suicide precautions. Safety Checks: Personal items have been removed. Door is open. Pt denies substance abuse. Commitment: Patient will be a voluntary commitment. Vital Signs: 03/12 12:33 BP 124 / 75; Pulse 95; Resp 16; Temp 98.2; Pulse Ox 100% on R/A; Weight 104.33 kg; hb Height 6 ft. 2 in. (187.96 cm); Pain 0/10; 19:22 BP 123 / 78; Pulse 84; Resp 16; Temp 97.8(O); Pulse Ox 99% on R/A; mt 03/13 00:36 BP 118 / 69; Pulse 90; Resp 16; Pulse Ox 98% on R/A; mt 06:24 BP 132 / 74; Pulse 76; Resp 14; Pulse Ox 97% on R/A; mt 10:22 BP 126 / 68; Pulse 72; Resp 16; Temp 98.0; Pulse Ox 99% on R/A; Pain 0/10; em1 11:50 BP 110 / 66; Pulse 61; Resp 16; Temp 98.0; Pulse Ox 100% on R/A; Pain 0/10; em1 15:15 BP 119 / 71; Pulse 65; Resp 17; Pulse Ox 99% on R/A; jb1 18:01 BP 122 / 69; Pulse 69; Resp 18; Pulse Ox 100% on R/A; jb1 23:52 BP 110 / 63; Pulse 69; Resp 18; Pulse Ox 98% on R/A; Pain 0/10; ea 03/14 07:31 BP 118 / 72; Pulse 70; Resp 18; Temp 97.8(O); Pulse Ox 99% on R/A; mh5 11:06 BP 112 / 75; Pulse 72; Resp 18; Temp 97.8(O); Pulse Ox 99% on R/A; mh5 15:02 BP 116 / 68; Pulse 62; Resp 17; Temp 97.9(TE); Pulse Ox 99% on R/A; mh5 03/12 12:33 Body Mass Index 29.53 (104.33 kg, 187.96 cm) hb ED Course: 03/12 12:22 Patient arrived in ED. as 12:33 Triage completed. hb 12:33 Arm band placed on left wrist. hb 12:35 Safety checks: Items removed: yes. Door open/sign placed on door: yes. Family/friend mh5 present: yes. Family/friends encouraged to stay with patient. Sitter present: Yes. 12:35 Patient has correct armband on for positive identification. Placed in gown. Bed in low mh5 position. Adult w/ patient. 12:37 Walker Solomon PA is PHCP. [facility] 12:37 Breezy Zaidi MD is Attending Physician. [facility] 12:45 Safety checks: Items removed: yes. Door open/sign placed on door: yes. Family/friend mh5 present: yes. Family/friends encouraged to stay with patient. Sitter present: Yes. 13:00 Safety checks: Items removed: yes. Door open/sign placed on door: yes. Family/friend mh5 present: yes. Family/friends encouraged to stay with patient. Sitter present: Yes. 13:00 No provider procedures requiring assistance completed. aj 13:13 Initial lab(s) drawn, by me, sent to lab. [facility] 13:13 Urine collected: clean catch specimen, clear. Patient did not have IV access during 5 this emergency room visit. IV discontinued, PATIENT REFUSED IV ACCESS . 13:15 Safety checks: Items removed: yes. Door open/sign placed on door: yes. Family/friend mh5 present: yes. Family/friends encouraged to stay with patient. Sitter present: Yes. 13:15 Acetaminophen Sent. 5 13:15 Basic Metabolic Panel Sent. 5 13:15 CBC with Diff Sent. 5 13:15 ETOH Level Sent. 5 13:15 Hepatic Function Sent. 5 13:15 PT-INR Sent. 5 13:15 Ptt, Activated Sent. 5 13:16 Salicylate Sent. 5 13:16 Urine Drug Screen Sent. 5 13:27 Tiffany Camacho, RN is Primary Nurse. aj 13:30 Safety checks: Items removed: yes. Door open/sign placed on door: yes. Family/friend mh5 present: yes. Family/friends encouraged to stay with patient. Sitter present: Yes. 13:33 EKG done, by motor vehicle technician. reviewed by Breezy Zaidi MD. at1 13:45 Safety checks: Items removed: yes. Door open/sign placed on door: yes. Family/friend mh5 present: yes. Family/friends encouraged to stay with patient. Sitter present: Yes. 14:00 Safety checks: Items removed: yes. Door open/sign placed on door: yes. Family/friend mh5 present: yes. Family/friends encouraged to stay with patient. Sitter present: Yes. 14:06 Diet: Patient given a regular meal tray. mh5 14:15 Safety checks: Items removed: yes. Door open/sign placed on door: yes. Family/friend mh5 present: no. Sitter present: Yes. 14:30 Safety checks: Items removed: yes. Door open/sign placed on door: yes. Family/friend mh5 present: yes. Family/friends encouraged to stay with patient. Sitter present: Yes. 14:45 Safety checks: Items removed: yes. Door open/sign placed on door: yes. Family/friend mh5 present: yes. Family/friends encouraged to stay with patient. Sitter present: Yes. 15:00 Safety checks: Items removed: yes. Door open/sign placed on door: yes. Family/friend mh5 present: yes. Sitter present: Yes. 15:15 Safety checks: Items removed: yes. Door open/sign placed on door: yes. Family/friend jp3 present: yes. Family/friends encouraged to stay with patient. Sitter present: Yes. Safety checks: Items removed:. 15:30 Safety checks: Items removed: yes. Door open/sign placed on door: yes. Family/friend jp3 present: yes. Family/friends encouraged to stay with patient. Sitter present: Yes. 15:45 Safety checks: Items removed: yes. Door open/sign placed on door: yes. Family/friend ca1 present: yes. Family/friends encouraged to stay with patient. Sitter present: Yes. 16:00 Safety Checks: Personal items have been removed. The door is open or patient has been ca1 placed in a hallway bed/chair. A family member and/or friend is present and encouraged to stay. Sitter present at this time. 16:00 Safety checks: Items removed: yes. Door open/sign placed on door: yes. Family/friend jp3 present: yes. Family/friends encouraged to stay with patient. Sitter present: Yes. 16:15 Safety Checks: Personal items have been removed. The door is open or patient has been ca1 placed in a hallway bed/chair. A family member and/or friend is present and encouraged to stay. Sitter present at this time. 16:15 Safety checks: Items removed: yes. Door open/sign placed on door: yes. Family/friend jp3 present: yes. Family/friends encouraged to stay with patient. Sitter present: Yes. Safety checks:. 16:30 Safety Checks: Personal items have been removed. The door is open or patient has been ca1 placed in a hallway bed/chair. A family member and/or friend is present and encouraged to stay. Sitter present at this time. 16:30 Safety checks: Items removed: yes. Door open/sign placed on door: yes. Family/friend jp3 present: yes. Family/friends encouraged to stay with patient. Sitter present: Yes. 16:45 Safety Checks: Personal items have been removed. The door is open or patient has been ca1 placed in a hallway bed/chair. A family member and/or friend is present and encouraged to stay. Sitter present at this time. 16:45 Safety checks: Items removed: yes. Door open/sign placed on door: yes. Family/friend jp3 present: yes. Family/friends encouraged to stay with patient. Sitter present: Yes. 17:00 Safety Checks: Personal items have been removed. The door is open or patient has been ca1 placed in a hallway bed/chair. A family member and/or friend is present and encouraged to stay. Sitter present at this time. 17:00 Safety checks: Items removed: yes. Door open/sign placed on door: yes. Family/friend jp3 present: yes. Family/friends encouraged to stay with patient. Sitter present: Yes. 17:15 Safety checks: Items removed: yes. Door open/sign placed on door: yes. Family/friend jp3 present: yes. Sitter present: Yes. 17:30 Safety checks: Items removed: yes. Door open/sign placed on door: yes. Family/friend jp3 present: yes. Family/friends encouraged to stay with patient. Sitter present: Yes. 17:45 Safety checks: Items removed: yes. Door open/sign placed on door: yes. Family/friend jp3 present: yes. Family/friends encouraged to stay with patient. Sitter present: Yes. 18:00 Safety checks: Items removed: yes. Door open/sign placed on door: yes. Family/friend jp3 present: yes. Family/friends encouraged to stay with patient. Sitter present: Yes. 18:15 Safety checks: Items removed: yes. Door open/sign placed on door: yes. Family/friend jp3 present: yes. Family/friends encouraged to stay with patient. Sitter present: Yes. 18:30 Safety checks: Items removed: yes. Door open/sign placed on door: yes. Family/friend mt present: no. Sitter present: Yes. 18:45 Safety checks: Items removed: yes. Door open/sign placed on door: yes. Family/friend mt present: no. Sitter present: Yes. 19:00 Safety checks: Items removed: yes. Door open/sign placed on door: yes. Family/friend mt present: no. Sitter present: Yes. 19:15 Safety checks: Items removed: yes. Door open/sign placed on door: yes. Family/friend mt present: no. Sitter present: Yes. 19:30 Safety checks: Items removed: yes. Door open/sign placed on door: yes. Family/friend mt present: no. Sitter present: Yes. 19:33 PHCP role handed off by Walker Solomon PA cp 19:33 Kody Paulino PA is PHCP. 19:45 Safety checks: Items removed: yes. Door open/sign placed on door: yes. Family/friend mt present: no. Sitter present: Yes. 20:00 Safety checks: Items removed: yes. Door open/sign placed on door: yes. Family/friend mt present: no. Sitter present: Yes. 20:15 Safety checks: Items removed: yes. Door open/sign placed on door: yes. Family/friend mt present: no. Sitter present: Yes. 20:30 Safety checks: Items removed: yes. Door open/sign placed on door: yes. Family/friend mt present: no. Sitter present: Yes. 20:45 Safety checks: Items removed: yes. Door open/sign placed on door: yes. Family/friend mt present: no. Sitter present: Yes. 21:00 Safety checks: Items removed: yes. Door open/sign placed on door: yes. Family/friend mt present: no. Sitter present: Yes. 21:15 Safety checks: Items removed: yes. Door open/sign placed on door: yes. Family/friend mt present: no. Sitter present: Yes. 21:30 Safety checks: Items removed: yes. Door open/sign placed on door: yes. Family/friend mt present: no. Sitter present: Yes. 21:45 Safety checks: Items removed: yes. Door open/sign placed on door: yes. Family/friend mt present: no. Sitter present: Yes. 22:00 Safety checks: Items removed: yes. Door open/sign placed on door: yes. Family/friend mt present: no. Sitter present: Yes. 22:15 Safety checks: Items removed: yes. Door open/sign placed on door: yes. Family/friend mt present: no. Sitter present: Yes. 22:30 Safety checks: Items removed: yes. Door open/sign placed on door: yes. Family/friend mt present: no. Sitter present: Yes. 22:45 Safety checks: Items removed: yes. Door open/sign placed on door: yes. Family/friend mt present: no. Sitter present: Yes. 23:00 Safety checks: Items removed: yes. Door open/sign placed on door: yes. Family/friend mt present: no. Sitter present: Yes. 23:15 Safety checks: Items removed: yes. Door open/sign placed on door: yes. Family/friend mt present: no. Sitter present: Yes. 23:30 Safety checks: Items removed: yes. Door open/sign placed on door: yes. Family/friend mt present: no. Sitter present: Yes. 23:45 Safety checks: Items removed: yes. Door open/sign placed on door: yes. Family/friend mt present: no. Sitter present: Yes. 03/13 00:00 Safety checks: Items removed: yes. Door open/sign placed on door: yes. Family/friend mt present: no. Sitter present: Yes. 00:15 Safety checks: Items removed: yes. Door open/sign placed on door: yes. Family/friend mt present: no. Sitter present: Yes. 00:30 Safety checks: Items removed: yes. Door open/sign placed on door: yes. Family/friend mt present: no. Sitter present: Yes. 00:45 Safety checks: Items removed: yes. Door open/sign placed on door: yes. Family/friend mt present: no. Sitter present: Yes. 01:00 Safety checks: Items removed: yes. Door open/sign placed on door: yes. Family/friend mt present: no. Sitter present: Yes. 01:15 Safety checks: Items removed: yes. Door open/sign placed on door: yes. Family/friend mt present: no. Sitter present: Yes. 01:30 Safety checks: Items removed: yes. Door open/sign placed on door: yes. Family/friend mt present: no. Sitter present: Yes. 01:45 Safety checks: Items removed: yes. Door open/sign placed on door: yes. Family/friend mt present: no. Sitter present: Yes. 02:00 Safety checks: Items removed: yes. Door open/sign placed on door: yes. Family/friend mt present: no. Sitter present: Yes. 02:15 Safety checks: Items removed: yes. Door open/sign placed on door: yes. Family/friend mt present: no. Sitter present: Yes. 02:30 Safety checks: Items removed: yes. Door open/sign placed on door: yes. Family/friend mt present: no. Sitter present: Yes. 02:45 Safety checks: Items removed: yes. Door open/sign placed on door: yes. Family/friend mt present: no. Sitter present: Yes. 03:00 Safety checks: Items removed: yes. Door open/sign placed on door: yes. Family/friend mt present: no. Sitter present: Yes. 03:15 Safety checks: Items removed: yes. Door open/sign placed on door: yes. Family/friend mt present: no. Sitter present: Yes. 03:30 Safety checks: Items removed: yes. Door open/sign placed on door: yes. Family/friend mt present: no. Sitter present: Yes. 03:45 Safety checks: Items removed: yes. Door open/sign placed on door: yes. Family/friend mt present: no. Sitter present: Yes. 04:00 Safety checks: Items removed: yes. Door open/sign placed on door: yes. Family/friend mt present: no. Sitter present: Yes. 04:15 Safety checks: Items removed: yes. Door open/sign placed on door: yes. Family/friend mt present: no. Sitter present: Yes. 04:30 Safety checks: Items removed: yes. Door open/sign placed on door: yes. Family/friend mt present: no. Sitter present: Yes. 04:45 Safety checks: Items removed: yes. Door open/sign placed on door: yes. Family/friend mt present: no. Sitter present: Yes. 05:00 Safety checks: Items removed: yes. Door open/sign placed on door: yes. Family/friend mt present: no. Sitter present: Yes. 05:15 Safety checks: Items removed: yes. Door open/sign placed on door: yes. Family/friend mt present: no. Sitter present: Yes. 05:30 Safety checks: Items removed: yes. Door open/sign placed on door: yes. Family/friend mt present: no. Sitter present: Yes. 05:45 Safety checks: Items removed: yes. Door open/sign placed on door: yes. Family/friend mt present: no. Sitter present: Yes. 06:00 Safety checks: Items removed: yes. Door open/sign placed on door: yes. Family/friend mt present: no. Sitter present: Yes. 06:15 Safety checks: Items removed: yes. Door open/sign placed on door: yes. Family/friend mt present: no. Sitter present: Yes. 06:30 Safety checks: Items removed: yes. Door open/sign placed on door: yes. Family/friend mt present: no. Sitter present: Yes. 06:45 Safety checks: Items removed: yes. Door open/sign placed on door: yes. Family/friend mt present: no. Sitter present: Yes. 07:00 Safety checks: Items removed: yes. Door open/sign placed on door: yes. Family/friend em1 present: no. Sitter present: Yes. 07:15 Safety checks: Items removed: yes. Door open/sign placed on door: yes. Family/friend em1 present: no. Sitter present: Yes. 07:30 Safety checks: Items removed: yes. Door open/sign placed on door: yes. Family/friend em1 present: no. Sitter present: Yes. 07:45 Safety checks: Items removed: yes. Door open/sign placed on door: yes. Family/friend em1 present: no. Sitter present: Yes. 08:00 Safety checks: Items removed: yes. Door open/sign placed on door: yes. Family/friend em1 present: no. Sitter present: Yes. 08:00 Diet tray given. em1 08:15 Safety checks: Items removed: yes. Door open/sign placed on door: yes. Family/friend em1 present: no. Sitter present: Yes. 08:30 Safety checks: Items removed: yes. Door open/sign placed on door: yes. Family/friend em1 present: no. Sitter present: Yes. 08:45 Safety checks: Items removed: yes. Door open/sign placed on door: yes. Family/friend em1 present: no. Sitter present: Yes. 09:00 Safety checks: Items removed: yes. Door open/sign placed on door: yes. Family/friend em1 present: no. Sitter present: Yes. 09:15 Safety checks: Items removed: yes. Door open/sign placed on door: yes. Family/friend em1 present: no. Sitter present: Yes. 09:30 Safety checks: Items removed: yes. Door open/sign placed on door: yes. Family/friend em1 present: yes. Family/friends encouraged to stay with patient. Sitter present: Yes. 09:39 Primary Nurse role handed off by Tiffany Camacho RN 09:39 Fabiana Loco, LENY is Primary Nurse. 09:45 Safety checks: Items removed: yes. Door open/sign placed on door: yes. Family/friend em1 present: no. Sitter present: Yes. 10:00 Safety checks: Items removed: yes. Door open/sign placed on door: yes. Family/friend em1 present: no. Sitter present: Yes. 10:15 Safety checks: Items removed: yes. Door open/sign placed on door: yes. Family/friend em1 present: no. Sitter present: Yes. 10:30 Safety checks: Items removed: yes. Door open/sign placed on door: yes. Family/friend em1 present: no. Sitter present: Yes. 10:45 Safety checks: Items removed: yes. Door open/sign placed on door: yes. Family/friend em1 present: no. Sitter present: Yes. 11:00 Safety checks: Items removed: yes. Door open/sign placed on door: yes. Family/friend em1 present: no. Sitter present: Yes. 11:15 Safety checks: Items removed: yes. Door open/sign placed on door: yes. Family/friend em1 present: no. Sitter present: Yes. 11:30 Safety checks: Items removed: yes. Door open/sign placed on door: yes. Family/friend em1 present: no. Sitter present: Yes. 11:45 Safety checks: Items removed: yes. Door open/sign placed on door: yes. Family/friend em1 present: no. Sitter present: Yes. 12:00 Safety checks: Items removed: yes. Door open/sign placed on door: yes. Family/friend em1 present: no. Sitter present: Yes. 12:15 Safety checks: Items removed: yes. Door open/sign placed on door: yes. Family/friend em1 present: no. Sitter present: Yes. 12:30 Safety checks: Items removed: yes. Door open/sign placed on door: yes. Family/friend em1 present: no. Sitter present: Yes. 12:45 Safety checks: Items removed: yes. Door open/sign placed on door: yes. Family/friend em1 present: no. Sitter present: Yes. 13:00 Safety checks: Items removed: yes. Door open/sign placed on door: yes. Family/friend em1 present: no. Sitter present: Yes. 13:15 Safety checks: Items removed: yes. Door open/sign placed on door: yes. Family/friend em1 present: no. Sitter present: Yes. 13:30 Safety checks: Items removed: yes. Door open/sign placed on door: yes. Family/friend em1 present: no. Sitter present: Yes. 13:45 Safety checks: Items removed: yes. Door open/sign placed on door: yes. Family/friend em1 present: no. Sitter present: Yes. 14:00 Safety checks: Items removed: yes. Door open/sign placed on door: yes. Family/friend em1 present: no. Sitter present: Yes. 14:15 Safety checks: Items removed: yes. Door open/sign placed on door: yes. Family/friend em1 present: no. Sitter present: Yes. 14:30 Safety checks: Items removed: yes. Door open/sign placed on door: yes. Family/friend em1 present: yes. Sitter present: Yes. 14:45 Safety checks: Items removed: yes. Door open/sign placed on door: yes. Family/friend jb1 present: no. Sitter present: Yes. 15:00 Safety checks: Items removed: yes. Door open/sign placed on door: yes. Family/friend jb1 present: no. Sitter present: Yes. 15:15 Safety checks: Items removed: yes. Door open/sign placed on door: yes. Family/friend jb1 present: no. Sitter present: Yes. 15:30 Safety checks: Items removed: yes. Door open/sign placed on door: yes. Family/friend jb1 present: no. Sitter present: Yes. 15:45 Safety checks: Items removed: yes. Door open/sign placed on door: yes. Family/friend jb1 present: no. Sitter present: Yes. 16:00 Safety checks: Items removed: yes. Door open/sign placed on door: yes. Family/friend jb1 present: no. Sitter present: Yes. 16:15 Safety checks: Items removed: yes. Door open/sign placed on door: yes. Family/friend jb1 present: no. Sitter present: Yes. 16:30 Safety checks: Items removed: yes. Door open/sign placed on door: yes. Family/friend jb1 present: no. Sitter present: Yes. 16:45 Safety checks: Items removed: yes. Door open/sign placed on door: yes. Family/friend jb1 present: no. Sitter present: Yes. 17:00 Safety checks: Items removed: yes. Door open/sign placed on door: yes. Family/friend jb1 present: no. Sitter present: Yes. 17:45 Safety checks: Items removed: yes. Door open/sign placed on door: yes. Family/friend jb1 present: no. Sitter present: Yes. 18:00 Diet tray given. [email or web address] 18:01 Safety checks: Items removed: yes. Door open/sign placed on door: yes. Family/friend jb1 present: no. Sitter present: Yes. 18:56 Notified primary nurse of Rosetta from [facility] patient intake called to notify us em1 that Mr. Degroot is on their waiting list. 19:00 Safety Checks: Personal items have been removed. The door is open or patient has been ea placed in a hallway bed/chair. Sitter present at this time. 19:15 Safety Checks: Personal items have been removed. The door is open or patient has been ea placed in a hallway bed/chair. There are no family/friend visitors at this time Sitter present at this time. 19:30 Safety Checks: Personal items have been removed. The door is open or patient has been ea placed in a hallway bed/chair. There are no family/friend visitors at this time Sitter present at this time. 19:45 Safety Checks: Personal items have been removed. The door is open or patient has been ea placed in a hallway bed/chair. There are no family/friend visitors at this time Sitter present at this time. 20:00 Safety Checks: Personal items have been removed. The door is open or patient has been ea placed in a hallway bed/chair. There are no family/friend visitors at this time Sitter present at this time. 20:15 Safety Checks: Personal items have been removed. The door is open or patient has been ea placed in a hallway bed/chair. There are no family/friend visitors at this time Sitter present at this time. 20:30 Safety Checks: Personal items have been removed. The door is open or patient has been ea placed in a hallway bed/chair. There are no family/friend visitors at this time Sitter present at this time. 20:45 Safety Checks: Personal items have been removed. The door is open or patient has been ea placed in a hallway bed/chair. There are no family/friend visitors at this time Sitter present at this time. 21:00 Safety Checks: Personal items have been removed. The door is open or patient has been ea placed in a hallway bed/chair. There are no family/friend visitors at this time Sitter present at this time. 21:15 Safety Checks: Personal items have been removed. The door is open or patient has been ea placed in a hallway bed/chair. There are no family/friend visitors at this time Sitter present at this time. 21:30 Safety Checks: Personal items have been removed. The door is open or patient has been ea placed in a hallway bed/chair. There are no family/friend visitors at this time Sitter present at this time. 21:45 Safety Checks: Personal items have been removed. The door is open or patient has been ea placed in a hallway bed/chair. There are no family/friend visitors at this time Sitter present at this time. 22:00 Safety Checks: Personal items have been removed. The door is open or patient has been ea placed in a hallway bed/chair. There are no family/friend visitors at this time Sitter present at this time. 22:15 Safety Checks: Personal items have been removed. The door is open or patient has been ea placed in a hallway bed/chair. There are no family/friend visitors at this time Sitter present at this time. 22:30 Safety Checks: Personal items have been removed. The door is open or patient has been ea placed in a hallway bed/chair. There are no family/friend visitors at this time Sitter present at this time. 22:45 Safety Checks: Personal items have been removed. The door is open or patient has been ea placed in a hallway bed/chair. There are no family/friend visitors at this time Sitter present at this time. 23:00 Safety Checks: Personal items have been removed. The door is open or patient has been ea placed in a hallway bed/chair. There are no family/friend visitors at this time Sitter present at this time. 23:15 Safety Checks: Personal items have been removed. The door is open or patient has been ea placed in a hallway bed/chair. There are no family/friend visitors at this time Sitter present at this time. 23:30 Safety Checks: Personal items have been removed. The door is open or patient has been ea placed in a hallway bed/chair. There are no family/friend visitors at this time Sitter present at this time. 23:45 Safety Checks: Personal items have been removed. The door is open or patient has been ea placed in a hallway bed/chair. There are no family/friend visitors at this time Sitter present at this time. 03/14 00:00 Safety Checks: Personal items have been removed. The door is open or patient has been ea placed in a hallway bed/chair. There are no family/friend visitors at this time. 00:15 Safety Checks: Personal items have been removed. The door is open or patient has been ea placed in a hallway bed/chair. There are no family/friend visitors at this time Sitter present at this time. 00:30 Safety Checks: Personal items have been removed. The door is open or patient has been ea placed in a hallway bed/chair. There are no family/friend visitors at this time Sitter present at this time. 00:45 Safety Checks: Personal items have been removed. The door is open or patient has been ea placed in a hallway bed/chair. There are no family/friend visitors at this time Sitter present at this time. 01:00 Safety Checks: Personal items have been removed. The door is open or patient has been ea placed in a hallway bed/chair. There are no family/friend visitors at this time Sitter present at this time. 01:15 Safety Checks: Personal items have been removed. The door is open or patient has been ea placed in a hallway bed/chair. There are no family/friend visitors at this time Sitter present at this time. 01:30 Safety Checks: Personal items have been removed. The door is open or patient has been ea placed in a hallway bed/chair. There are no family/friend visitors at this time Sitter present at this time. 01:45 Safety Checks: Personal items have been removed. The door is open or patient has been ea placed in a hallway bed/chair. There are no family/friend visitors at this time Sitter present at this time. 02:00 Safety Checks: Personal items have been removed. The door is open or patient has been ea placed in a hallway bed/chair. There are no family/friend visitors at this time Sitter present at this time. 02:15 Safety Checks: Personal items have been removed. The door is open or patient has been ea placed in a hallway bed/chair. There are no family/friend visitors at this time Sitter present at this time. 02:30 Safety Checks: Personal items have been removed. The door is open or patient has been ea placed in a hallway bed/chair. There are no family/friend visitors at this time Sitter present at this time. 02:45 Safety Checks: Personal items have been removed. The door is open or patient has been ea placed in a hallway bed/chair. There are no family/friend visitors at this time Sitter present at this time. 03:00 Safety Checks: Personal items have been removed. The door is open or patient has been ea placed in a hallway bed/chair. There are no family/friend visitors at this time Sitter present at this time. 03:15 Safety Checks: Personal items have been removed. The door is open or patient has been ea placed in a hallway bed/chair. There are no family/friend visitors at this time Sitter present at this time. 03:30 Safety Checks: Personal items have been removed. The door is open or patient has been ea placed in a hallway bed/chair. There are no family/friend visitors at this time Sitter present at this time. 03:45 Safety Checks: Personal items have been removed. The door is open or patient has been ea placed in a hallway bed/chair. There are no family/friend visitors at this time Sitter present at this time. 04:00 Safety Checks: Personal items have been removed. The door is open or patient has been ea placed in a hallway bed/chair. There are no family/friend visitors at this time Sitter present at this time. 04:15 Safety Checks: Personal items have been removed. The door is open or patient has been ea placed in a hallway bed/chair. There are no family/friend visitors at this time Sitter present at this time. 04:30 Safety Checks: Personal items have been removed. The door is open or patient has been ea placed in a hallway bed/chair. There are no family/friend visitors at this time Sitter present at this time. 04:45 Safety Checks: Personal items have been removed. The door is open or patient has been ea placed in a hallway bed/chair. There are no family/friend visitors at this time Sitter present at this time. 05:00 Safety Checks: Personal items have been removed. The door is open or patient has been ea placed in a hallway bed/chair. There are no family/friend visitors at this time Sitter present at this time. 05:15 Safety Checks: Personal items have been removed. The door is open or patient has been ea placed in a hallway bed/chair. There are no family/friend visitors at this time Sitter present at this time. 05:30 Safety Checks: Personal items have been removed. The door is open or patient has been ea placed in a hallway bed/chair. There are no family/friend visitors at this time Sitter present at this time. 05:45 Safety Checks: Personal items have been removed. The door is open or patient has been ea placed in a hallway bed/chair. There are no family/friend visitors at this time Sitter present at this time. 06:00 Safety Checks: Personal items have been removed. The door is open or patient has been ea placed in a hallway bed/chair. There are no family/friend visitors at this time Sitter present at this time. 06:15 Safety Checks: Personal items have been removed. The door is open or patient has been ea placed in a hallway bed/chair. There are no family/friend visitors at this time Sitter present at this time. 06:30 Safety Checks: Personal items have been removed. The door is open or patient has been ea placed in a hallway bed/chair. There are no family/friend visitors at this time Sitter present at this time. 06:45 Safety Checks: Personal items have been removed. The door is open or patient has been ea placed in a hallway bed/chair. There are no family/friend visitors at this time Sitter present at this time. 07:00 Safety Checks: Personal items have been removed. The door is open or patient has been ea placed in a hallway bed/chair. There are no family/friend visitors at this time Sitter present at this time. 07:00 Safety checks: Items removed: yes. Door open/sign placed on door: yes. Family/friend mh5 present: no. Sitter present: Yes. 07:15 Safety checks: Items removed: yes. Door open/sign placed on door: yes. Family/friend mh5 present: no. Sitter present: Yes. Safety checks: Items removed:. 07:23 Primary Nurse role handed off by Fabiana Loco, LENY tw2 07:23 Meron Holman RN is Primary Nurse. tw2 07:30 Safety checks: Items removed: yes. Door open/sign placed on door: yes. Family/friend mh5 present: no. Sitter present: Yes. 07:45 Safety checks: Items removed: yes. Door open/sign placed on door: yes. Family/friend mh5 present: no. Sitter present: Yes. 08:00 Safety checks: Items removed: yes. Door open/sign placed on door: yes. Family/friend mh5 present: no. Sitter present: Yes. 08:15 Safety checks: Items removed: yes. Door open/sign placed on door: yes. Family/friend mh5 present: no. Sitter present: Yes. 08:30 Safety checks: Items removed: yes. Door open/sign placed on door: yes. Family/friend mh5 present: no. Sitter present: Yes. 08:45 Safety checks: Items removed: yes. Door open/sign placed on door: yes. Family/friend mh5 present: Sitter present: Yes. 09:00 Safety checks: Items removed: yes. Door open/sign placed on door: yes. Family/friend mh5 present: no. Sitter present: Yes. 09:14 Diet: Patient given a regular meal tray. mh5 09:15 Safety checks: Items removed: yes. Door open/sign placed on door: yes. Family/friend mh5 present: no. Sitter present: Yes. 09:30 Safety checks: Items removed: yes. Door open/sign placed on door: yes. Family/friend mh5 present: no. Sitter present: Yes. 09:45 Safety checks: Items removed: yes. Door open/sign placed on door: yes. Family/friend mh5 present: no. Sitter present: Yes. 10:00 Safety checks: Items removed: yes. Door open/sign placed on door: yes. Family/friend mh5 present: no. Sitter present: Yes. 10:15 Safety checks: Items removed: yes. Door open/sign placed on door: yes. Family/friend mh5 present: no. Sitter present: Yes. 10:30 Safety checks: Items removed: yes. Door open/sign placed on door: yes. Family/friend mh5 present: yes. Sitter present: Yes. 10:45 Safety checks: Items removed: yes. Door open/sign placed on door: yes. Family/friend mh5 present: no. Sitter present: Yes. 11:00 Safety checks: Items removed: yes. Door open/sign placed on door: yes. Family/friend mh5 present: no. Sitter present: Yes. 11:15 Safety checks: Items removed: yes. Door open/sign placed on door: yes. Family/friend mh5 present: no. Sitter present: Yes. 11:30 Safety checks: Items removed: yes. Door open/sign placed on door: yes. Family/friend mh5 present: no. Sitter present: No. 11:45 Safety checks: Items removed: yes. Door open/sign placed on door: yes. Family/friend mh5 present: no. Sitter present: Yes. 12:00 Safety checks: Items removed: yes. Door open/sign placed on door: yes. Family/friend mh5 present: no. Sitter present: Yes. 12:04 Diet: Patient given a regular meal tray. mh5 12:15 Safety checks: Items removed: yes. Door open/sign placed on door: yes. Family/friend mh5 present: yes. Sitter present: Yes. 12:30 Safety checks: Items removed: yes. Door open/sign placed on door: yes. Family/friend mh5 present: yes. Sitter present: Yes. 12:45 No apparent distress. sitting up with visitor present at this time. Safety Checks: tw2 Personal items have been removed. The door is open or patient has been placed in a hallway bed/chair. A family member and/or friend is present and encouraged to stay. Sitter present at this time. 12:45 Safety checks: Items removed: yes. Door open/sign placed on door: yes. Family/friend jb1 present: no. Sitter present: Yes. 13:00 Safety checks: Items removed: yes. Door open/sign placed on door: yes. Family/friend jb1 present: no. Sitter present: Yes. 13:15 Safety checks: Items removed: yes. Door open/sign placed on door: yes. Family/friend mh5 present: no. Sitter present: Yes. 13:30 Safety checks: Items removed: yes. Door open/sign placed on door: yes. Family/friend mh5 present: no. Sitter present: Yes. 13:45 Safety checks: Items removed: yes. Door open/sign placed on door: yes. Family/friend mh5 present: no. Sitter present: Yes. 14:00 Safety checks: Items removed: yes. Door open/sign placed on door: yes. Family/friend mh5 present: no. Sitter present: Yes. 14:15 Safety checks: Items removed: yes. Door open/sign placed on door: yes. Family/friend mh5 present: no. Sitter present: Yes. 14:30 Safety checks: Items removed: yes. Door open/sign placed on door: yes. Family/friend mh5 present: no. Sitter present: Yes. 14:45 Safety checks: Items removed: yes. Door open/sign placed on door: yes. Family/friend mh5 present: no. Sitter present: Yes. 15:00 Safety checks: Items removed: yes. Door open/sign placed on door: yes. Family/friend mh5 present: Sitter present: Yes. 15:15 Safety checks: Items removed: yes. Door open/sign placed on door: yes. Family/friend mh5 present: no. Sitter present: Yes. 15:30 Safety checks: Items removed: yes. Door open/sign placed on door: yes. Family/friend mh5 present: no. Sitter present: Yes. 15:45 Safety checks: Items removed: yes. Door open/sign placed on door: yes. Family/friend mh5 present: no. Sitter present: Yes. 15:55 Diet: Patient given snack. mh5 16:00 Safety checks: Items removed: yes. Door open/sign placed on door: yes. Family/friend mh5 present: no. Sitter present: Yes. 16:15 Safety checks: Items removed: yes. Door open/sign placed on door: yes. Family/friend mh5 present: no. Sitter present: Yes. 16:30 Safety checks: Items removed: yes. Door open/sign placed on door: yes. Family/friend mh5 present: yes. Family/friends encouraged to stay with patient. Sitter present: Yes. 16:45 Safety checks: Items removed: yes. Door open/sign placed on door: yes. Family/friend [employer] present: no. Sitter present: Yes. Safety checks: Items removed:. 16:54 Safety checks: Items removed: Other: EMS HERE TO TAKE PATIENT TO [facility]. 5 17:00 Patient did not have IV access during this emergency room visit. tw2 Administered Medications: 03/12 15:52 Drug: Nicotine 21 mg/24 hr 1 patches Route: Transdermal; Site: anterior chest wall; 03/13 11:52 Not Given (Patient Refused; wrong order): Benadryl 50 mg IVP once 11:52 Not Given (wrong order): Motrin 600 mg PO once 11:52 Drug: Motrin 800 mg Route: PO; 11:53 Follow up: Response: No adverse reaction; Marked relief of symptoms 12:42 Follow up: Response: No adverse reaction; Marked relief of symptoms 11:53 Drug: Benadryl 50 mg Route: IM; Site: right ventrogluteal; 11:53 Follow up: Response: No adverse reaction; Marked relief of symptoms 12:42 Follow up: Response: No adverse reaction; Marked relief of symptoms 03/14 15:48 Drug: Nicoderm CQ 21 mg/24 hr 1 patches {Note: left upper arm.} Route: Transdermal; tw2 Site: affected area; Outcome: 03/12 17:14 ER care complete, transfer ordered by jrBrad 03/14 17:00 Patient left the ED. 17:00 Transferred by ground EMS tw2 17:00 Condition: stable 17:00 Instructed on the need for transfer. Signatures: Torres Duran jb1 Fabiana Loco RN RN ch Myers, Amanda, RN RN aj Martinez, Amelia as Martinez, Eric em1 Makenzie Shafer RN RN aa5 Flower Sheikh RN RN Walker Solomon PA PA jr8 Tiffany Mitchell, master coastwise yacht EKG Tat1 Samuel Solitario RN RN hj Page, Corey, PA PA cp Baxter, Heather, RN RN hb Wise, Tara, RN RN tw2 Antolin Copeland RN RN jb4 Krysta Concepcion Joann White mt, Elena RN Godfrey Mendez ea, jp3 Acob, Sandra, RN RN ca1 Corrections: (The following items were deleted from the chart) 03/12 13:17 13:12 Patient has correct armband on for positive identification. Placed in gown. Bed mh5 in low position. Adult w/ patient. mh5 16:38 15:45 Safety checks: Items removed: yes. Door open/sign placed on door: yes. ca1 Family/friend present: yes. Family/friends encouraged to stay with patient. Sitter present: Yes. jp3 16:38 16:37 Patient is placed in psych hold ca1 ca1 03/14 12:48 07:00 Reassessment: Patient appears in no apparent distress at this time. Patient tw2 and/or family updated on plan of care and expected duration. Pain level reassessed. Patient is alert, oriented x 3, equal unlabored respirations, skin warm/dry/pink. pt appears to be sleeping at this time. tw2 15:01 13:00 Reassessment: Paged [facility] psych resident, awaiting call back for doc to doc
[2019-03-13] MEDS ORDERED: DIPHENHYDRAMINE 50 MG/ML VIAL ONE (11:56)
[2019-03-13] MEDS ORDERED: IBUPROFEN 200 MG TAB PO ONE (11:57)
[2019-03-14] MEDS ORDERED: NICOTINE 21 MG/PAT TD ONE (15:58)
== END 2019-03-14 17:00 ==
LOC: ER 12:20
DX: R45.851 Suicidal ideations (principal); R44.1 Visual hallucinations; Z88.7 Allergy status to serum and vaccine; F17.210 Nicotine dependence, cigarettes, uncomplicated
CPT/HCPCS: 36415; 80048; 80076; 80307; 80320; 80329; 81003; 85025; 85610; 85730; 93005; 96372; 99285

== ENCOUNTER 2020-09-16 20:26 | Emergency (ER) | payer OTHER, SELFPAY ==
--- OUTSIDE RECORDS SUMMARY | 2020-09-16 20:27 | XMS REPORT | Continuity of Care Document ---
:1985 Author Organization [facility] t Address 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 Allergies, Adverse Reactions, Alerts This patient has no known allergies or adverse reactions. Medications This patient has no known medications. Procedures This patient has no known procedures. Encounters Start End Encounter Admission Attending Care Care Encounter Source Date/Time Date/Time Type Type Clinicians Facility Department ID 2020-02-01 2020-02-01 Telephone George JOE [id number] 00:00:00 00:00:00 Elidia Librado [facility] [id number] [facility] [id number] 2020-01-31 2020-01-31 [facility] [id number] 16:04:00 23:59:00 Encounter Kaci Arriaga [id number] [place] [id number] [place] [id number] 2020-01-31 2020-01-31 Urgent Pob1, Acute [facility] [id number] 15:20:10 15:40:10 [facility] [id number] [place] [id number] [facility] [id number] nal [address] Results This patient has no known results.
[2020-09-16 21:25] LABS: Absolute Lymphocytes (CBC) 3.2 K/uL (0.7-4.9); Basophils % 0.4 % (0-1.3); Hematocrit 42.3 % (39.6-49.0); Lymphocytes % 51.3 % (15.3-44.8); RBC Red Blood Cell Count 4.85 M/uL (4.33-5.43)
[2020-09-16 21:40] LABS: Albumin 3.9 g/dL (3.4-5.0); Bilirubin Direct 0.1 mg/dL (0-0.2); Bilirubin Total 0.4 mg/dL (0.2-1.0); Potassium 4.1 mmol/L (3.5-5.1); Protein, Total 8.2 g/dL (6.4-8.2)
[2020-09-16] MEDS ORDERED: MORPHINE 2 MG/ML SYR ONE (21:52)
[2020-09-16] MEDS ORDERED: KETOROLAC 30 MG/ML INJ ONE (21:52)
[2020-09-16] MEDS ORDERED: ONDANSETRON 4 MG/2 ML VIAL ONE (21:52)
[2020-09-16] MEDS ORDERED: NA CHLORIDE 0.9% 1,000 ML ONE (21:52)
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
[2020-09-17 05:57] VITALS: TEMP 98.1
[2020-09-17 05:59] VITALS: BP 126/73; O2SAT 98
--- NOTE | 2020-09-17 07:37 | RAD REPORT ---
EXAM DESCRIPTION: RAD - Shoulder Left 2 View - 09/16/2020 9:47 pm CLINICAL HISTORY: Left shoulder pain FINDINGS: No fracture or dislocation is seen.
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
== END 2020-09-16 23:12 | disposition home or self-care (01) ==
LOC: ER 20:26
DX: S16.1XXA Strain of muscle, fascia and tendon at neck level, initial encounter (principal); S20.222A Contusion of left back wall of thorax, initial encounter; R91.1 Solitary pulmonary nodule; V49.9XXA Car occupant (driver) (passenger) injured in unspecified traffic accident, initial encounter; Z88.7 Allergy status to serum and vaccine
CPT/HCPCS: 85025; 80048; 36415; 80076; 83690; 70450; 72125; 71260; 74177; 73030; 96375; 96374; 99284; Q9967; J2270; J7030; J2405; G0390

== ENCOUNTER → 2023-12-05 | Emergency (ER) | payer OTHER, SELFPAY ==
--- OUTSIDE RECORDS SUMMARY | 2023-12-05 09:03 | XMS REPORT | Continuity of Care Document ---
Author Name Unknown Address [address] [place] [address] [facility] thconnect Address [address] [place] [address] Care Team Providers Care Operations Developer Name Role Phone PCP, PATIENT DOES NOT HAVE A Primary Care Physic amie Vazquez RN, Elidia Pavon Attending Clinician KACI Ruelas Attending Clinician Unavailable Kaci Chris Attending Clinician [phone] [facility] Attending Clinician Pipo Sams MD Attending Clinician [phone] KACI WALLS Admitting Clinician Unavailable Payers Payer Name Policy Type Policy Number Effective Date Expirati on Date Source MEDICAID GENERIC [id number] 2017 00:00:00 Problems Condition Name Condition Details Condition Category Status Onset Date Resolution Date Last Treatment Date Treating Clinician Comments Source No known active problems No known active problems Disease [facility] Allergies, Adverse Reactions, Alerts Allergy Name Allergy Type Status Severity Reaction(s) Onset Date Inactive Date Treating Clinician Comments Source NO KNOWN ALLERGIE S Drug Class Active [facility] Social History Social Habit Start Date Stop Date Quantity Comments Source Sex Assigned At [facility] Smoking Status Start Date Stop Date Source Former smoker 2020-01-31 00:00:00 2020-01-31 00:00:00 [facility] Medications Ordered Medication Name Filled Medication Name Start Date Stop Date Current Medication? Ordering Clinician Indication Dosage Frequency Signature (SIG) Comments Components Source albuterol (VENTOLIN HFA) 90 mcg/actuati on inhaler 01-30 00:00: 03-02 04:59 :00 No [id number] 2{puff} Inhale 2 Puffs every 6 (six) hours as needed for Shortness of Breath or Chest tightness for up to 30 days. [facility] albuterol (VENTOLIN HFA) 90 mcg/actuati on inhaler 01-30 00:00: 00 03-02 04:59 :00 No [id number] 2{puff} Inhale 2 Puffs every 6 (six) hours as needed for Shortness of Breath or Chest tightness for up to 30 days. [facility] albuterol (VENTOLIN HFA) 90 mcg/actuati on inhaler 01-30 00:00: 03-02 04:59 :00 No [id number] 2{puff} Inhale 2 Puffs every 6 (six) hours as needed for Shortness of Breath or Chest tightness for up to 30 days. [facility] bromphenira mine-pseudo ephedrine-D M (BROMFED DM) 2-30-10 mg/5 mL syrup 01-30 00:00: 02-10 04:59 :00 No [id number] 5mL Take 5 mL by mouth 4 (four) times daily as needed for Congestion /Allergies or Cough for up to 10 days. [facility] bromphenira mine-pseudo ephedrine-D M (BROMFED DM) 2-30-10 mg/5 mL syrup 01-30 00:00: 00 02-10 04:59 :00 No [id number] 5mL Take 5 mL by mouth 4 (four) times daily as needed for Congestion /Allergies or Cough for up to 10 days. [facility] bromphenira mine-pseudo ephedrine-D M (BROMFED DM) 2-30-10 mg/5 mL syrup 01-30 00:00: 00 02-10 04:59 :00 No [id number] 5mL Take 5 mL by mouth 4 (four) times daily as needed for Congestion /Allergies or Cough for up to 10 days. [facility] Vital Signs Vital Name Observation Time Observation Value Comments S ource Systolic blood pressure 2020-01-31 20:31:00 128 [facility]Hg[facility] Diastolic blood pressure 2020-01-31 20:31:00 81 mm[Hg] [facility] Heart rate 2020-01-31 20:31:00 98 /min [facility] Body temperature 2020-01-31 20:31:00 37.44 Janet [facility] Respiratory rate 2020-01-31 20:31:00 22 /min [facility] Body height 2020-01-31 20:31:00 188 cm [facility] Body weight 2020-01-31 20:31:00 104.327 kg [facility] BMI 2020-01-31 20:31:00 29.53 kg/m2 [facility] Oxygen saturation in Arterial blood by Pulse oximetry 2020-01-31 20:31:00 99 /min [facility] Systolic blood pressure 2020-01-31 20:31:00 128 mm[Hg] [facility] Diastolic blood pressure 2020-01-31 20:31:00 81 mm[Hg] [facility] Heart rate 2020-01-31 20:31:00 98 /min [facility] Body temperature 2020-01-31 20:31:00 37.44 Janet [facility] Respiratory rate 2020-01-31 20:31:00 22 /min [facility] Body height 2020-01-31 20:31:00 188 cm [facility] Body weight 2020-01-31 20:31:00 104.327 kg [facility] BMI 2020-01-31 20:31:00 29.53 kg/m2 [facility] Oxygen saturation in Arterial blood by Pulse oximetry 2020-01-31 20:31:00 99 /min [facility] Procedures Procedure Date / Time Performed Performing Clinicia n Source XR CHEST 2 VW COVID 2020-01-31 21:20:02 Kaci Walls [facility] Encounters Start Date/Time End Date/Time Encounter Type Admission Type Attending Clinicians Care Facility Care Department Encounter ID Source 2020-02-01 00:00:00 2020-02-01 00:00:00 Telephone Elidia Vazquez [facility] [id number] 2020-02-01 00:00:00 2020-02-01 00:00:00 Telephone George Elidia Pavon [facility] [id number] [facility] 2020-01-31 16:04:18 2020-01-31 23:59:00 Outpatient R KACI WALLS [facility] [id number] [facility] 2020-01-31 16:04:00 2020-01-31 23:59:00 Hospital Encounter Kaci Walls [facility] [id number] 2020-01-31 16:04:00 2020-01-31 23:59:00 Hospital Encounter Kaci Walls [facility] [id number] [facility] 2020-01-31 15:20:10 2020-01-31 15:40:10 Urgent Care Po, Acute Care Clinic [facility] [id number] 2020-01-31 15:20:10 2020-01-31 15:40:10 Urgent Care [facility], Acute Care Clinic Pipo Recio [facility] [id number] [facility] Results Test Description Test Time Test Comments Results Result Comments Source XR CHEST 2 VW COVID 21:32:39 1. No acute intrathoracic abnormality, specifically no detectableradiographic findings to suggest COVID-19 pneumonia. Disclaimer: Generally, the findings on chest imaging in COVID-19 are notspecific, and overlap with other infections, including influenza, H1N1,SARS and MERS.According to the Centers for Disease Control (CDC) and the [employer], viral testing remains the only specific method of diagnosiseven if CXR or CT findings are suggestive of COVID-19. PROCEDURE: CHEST XRAY 2 view, CLINICAL INDICATION: cough, chest tightening, fever, vapes daily COMPARISON: None FINDINGS: Lungs: Lungs are clear. No focal consolidation is identified. Pleura: No pleural effusion or pneumothorax is seen. The heart is normal insize. No acute bony abnormality. [facility], Radiant Results Inft User - 01/31/2020 4:33 PM CDTPROCEDURE: CHEST XRAY 2 view, CLINICAL INDICATION: cough, chest tightening, fever, vapes daily COMPARISON: NoneFINDINGS:Lungs: Lungs are clear. No focal consolidation is identified.Pleura: No pleural effusion or pneumothorax is seen. The heart is normal insize.No acute bony abnormality.IMPRESSION1. No acute intrathoracic abnormality, specifically no detectableradiographic findings to suggest COVID-19 pneumonia.Disclaimer: Generally, the findings on chest imaging in COVID-19 are notspecific, and overlap with other infections, including influenza, H1N1,SARS and MERS.According to the Centers for Disease Control (CDC) and the [employer], viral testing remains the only specific method of diagnosiseven if CXR or CT findings are suggestive of COVID-19. [facility] Thyroid Stimulating [id number] 07:26:09* Test Item Value Reference Range Interpretation Comme nts TSH (test code = TSH) 1.610 mIU/mL 0.270-4.200 Lipid [id number] 07:06:07* Test Item Value Reference Range Interpretation Comme nts Cholesterol Total (test code = Cholesterol Total) 129 mg/dL 0-200 RISK OF HEART DISEASEPublished by [place] [employer] Association Analyte Optimal Borderline Increased RiskCHOL <200 200-239 >240TRIG <150 150-199 >200HDL Male >60 <40HDL Female >60 <50LDL <100 130-159 >160LDL Near optimal is 100-129 Triglycerides (test code = Triglycerides) 135 mg/dL 9-200 HDL (test code = HDL) 44 mg/dL 40-60 LDL (test code = LDL) 58 mg/dL 0-130 The equation being used in this calculation is LDL = (Chol - HDL) - (Trig / 5) VLDL (test code = VLDL) 27 mg/dL 5-40 The equation tiara ng used in this calculation is VLDL = Trig / 5 Chol/HDL (test code = Chol/HDL) 2.9 ratio 0.0-5.0 LDL/HDL Ratio (test code = LDL/HDL Ratio) 1 N The equati on being used in this calculation is LDL/HDL Ratio=LDL Calc/HDL Chol Comprehensive Metabolic [id number] 07:01:50* Test Item Value Reference Range Interpretation Comme nts Sodium Level (test code = So dium Level) 143.0 mmol/L 135.0-145.0 Potassium Level (test code = Potassium Level) 4.3 mmol/L 3.5-5.1 Chloride Level (test code = Chloride Level) 105 mmol/L 98-105 CO2 (test code = CO2) 28 mmol/L 22-29 Anion Gap (test code = Anion Gap) 10 mmol/L 7-16 BUN (test code = BUN) 16.80 mg/dL 6.00-20.00 Creatinine Level (test code = Creatinine Level) 0.90 mg/dL 0.70-1.20 BUN/Creat Ratio (test code = BUN/Creat Ratio) 19 N Glucose Level (test code = Glucose Level) 104 mg/dL 70-115 Calcium Level (test code = Calcium Level) 9.0 mg/dL 8.3-10.5 Alk Phos (test code = Alk Phos) 63 U/L 40-129 Bilirubin Total (test code = Bilirubin Total) 0.2 mg/dL 0.1-0.9 Albumin Level (test code = Albumin Level) 3.9 g/dL 3.5-5.2 Protein Total (test code = Protein Total) 6.3 g/dL 6.4-8.3 L ALT (test code = ALT) 21 U/L 1-41 AST (test code = AST) 18 U/L 1-40 Globulin (test code = Globulin) 2.4 g/dL 2.9-3.1 L A/G Ratio (test code = A/G Ratio) 1.6 ratio N Comprehensive Metabolic [id number] 07:01:50* Test Item Value Reference Range Interpretation Comme nts Sodium Level (test code = Sodium Level) 143.0 mmol/L 135.0-145.0 Potassium Level (test code = Potassium Level) 4.3 mmol/L 3.5-5.1 Chloride Level (test code = Chloride Level) 105 mmol/L 98-105 CO2 (test code = CO2) 28 mmol/L 22-29 Anion Gap (test code = Anion Gap) 10 mmol/L 7-16 BUN (test code = BUN) 16.80 mg/dL 6.00-20.00 Creatinine Level (test code = Creatinine Level) 0.90 mg/dL 0.70-1.20 BUN/Creat Ratio (test code = BUN/Creat Ratio) 19 N Glucose Level (test code = Glucose Level) 104 mg/dL 70-115 Calcium Level (test code = Calcium Level) 9.0 mg/dL 8.3-10.5 Alk Phos (test code = Alk Phos) 63 U/L 40-129 Bilirubin Total (test code = Bilirubin Total) 0.2 mg/dL 0.1-0.9 Albumin Level (test code = Albumin Level) 3.9 g/dL 3.5-5.2 Protein Total (test code = Protein Total) 6.3 g/dL 6.4-8.3 L ALT (test code = ALT) 21 U/L 1-41 AST (test code = AST) 18 U/L 1-40 Globulin (test code = Globulin) 2.4 g/dL 2.9-3.1 L A/G Ratio (test code = A/G Ratio) 1.6 ratio N eGFR AA (test code = eGFR AA) >60 mL/min/1.73 m2 N eGFR (estimated Glomerular Filtration Rate) is an estimated value, calculated from the patient's serum creatinine using the MDRD equation. It is NOT the patient's actual GFR. The eGFR provides a more clinically useful measure of kidney disease than serum creatinine alone.This calculation takes sex and race into account, if the information is provided. If the race is not provided, and the patient is -[place], multiply by 1.212. If sex is not provided, and the patient is female, multiply by 0.742. Results for patients <18 years of age have not been validated by the MDRD study and should be interpreted with caution. eGFR Result Interpretation:eGFR > or = 60 is in the Normal RangeeGFR < 60 may mean kidney diseaseeGFR < 15 may mean kidney failure Ranges recommended by the National Kidney Foundation, http://nkdep.nih.gov Alcohol [id number] 07:01:50* Test Item Value Reference Range Interpretation Comme nts Ethanol Level (test code = Ethanol Level) <0.00 g/dL 0.00-0.01 Intoxicated 0.08 0 g/dL or more Ethanol Inst (test code = Ethanol Inst) <0 N Comprehensive Metabolic [id number] 07:01:50* Test Item Value Reference Range Interpretation Comme nts Sodium Level (test code = Sodium Level) 143.0 mmol/L 135.0-145.0 Potassium Level (test code = Potassium Level) 4.3 mmol/L 3.5-5.1 Chloride Level (test code = Chloride Level) 105 mmol/L 98-105 CO2 (test code = CO2) 28 mmol/L 22-29 Anion Gap (test code = Anion Gap) 10 mmol/L 7-16 BUN (test code = BUN) 16.80 mg/dL 6.00-20.00 Creatinine Level (test code = Creatinine Level) 0.90 mg/dL 0.70-1.20 BUN/Creat Ratio (test code = BUN/Creat Ratio) 19 N Glucose Level (test code = Glucose Level) 104 mg/dL 70-115 Calcium Level (test code = Calcium Level) 9.0 mg/dL 8.3-10.5 Alk Phos (test code = Alk Phos) 63 U/L 40-129 Bilirubin Total (test code = Bilirubin Total) 0.2 mg/dL 0.1-0.9 Albumin Level (test code = Albumin Level) 3.9 g/dL 3.5-5.2 Protein Total (test code = Protein Total) 6.3 g/dL 6.4-8.3 L ALT (test code = ALT) 21 U/L 1-41 AST (test code = AST) 18 U/L 1-40 Globulin (test code = Globulin) 2.4 g/dL 2.9-3.1 L A/G Ratio (test code = A/G Ratio) 1.6 ratio N eGFR AA (test code = eGFR AA) >60 mL/min/1.73 m2 N eGFR (estimated Glomerular Filtration Rate) is an estimated value, calculated from the patient's serum creatinine using the MDRD equation. It is NOT the patient's actual GFR. The eGFR provides a more clinically useful measure of kidney disease than serum creatinine alone.This calculation takes sex and race into account, if the information is provided. If the race is not provided, and the patient is -[place], multiply by 1.212. If sex is not provided, and the patient is female, multiply by 0.742. Results for patients <18 years of age have not been validated by the MDRD study and should be interpreted with caution. eGFR Result Interpretation:eGFR > or = 60 is in the Normal RangeeGFR < 60 may mean kidney diseaseeGFR < 15 may mean kidney failure Ranges recommended by the National Kidney Foundation, http://nkdep.nih.gov eGFR Non-AA (test code = eGFR Non-AA) >60.00 mL/min/1.73 m2 N eGFR (estimated Glomerular Filtration Rate) is an estimated value, calculated from the patient's serum creatinine using the MDRD equation. It is NOT the patient's actual GFR. The eGFR provides a more clinically useful measure of kidney disease than serum creatinine alone.This calculation takes sex and race into account, if the information is provided. If the race is not provided, and the patient is -[place], multiply by 1.212. If sex is not provided, and the patient is female, multiply by 0.742. Results for patients <18 years of age have not been validated by the MDRD study and should be interpreted with caution. eGFR Result Interpretation:eGFR > or = 60 is in the Normal RangeeGFR < 60 may mean kidney diseaseeGFR < 15 may mean kidney failure Ranges recommended by the National Kidney Foundation, http://nkdep.nih.gov Complete Blood Count with [id number] 06:45:50* Test Item Value Reference Range Interpretation Comme nts WBC (test code = WBC) 5.3 x10 4.4-10.5 RBC (test code = RBC) 4.68 x10 4.10-5.70 Hgb (test code = Hgb) 14.4 g/dL 13.4-17.4 MCV (test code = MCV) 91.50 fL 80.00-100.00 Hct (test code = Hct) 42.8 % 38.7-52.0 MCHC (test code = MCHC) 33.60 g/dL 32.00-37.50 RDW CV (test code = RDW CV) 12.2 % 11.5-14.5 MCH (test code = MCH) 30.8 pg 27.0-32.5 Platelets (test code = Platelets) 195.0 x10 140.0-440.0 MPV (test code = MPV) 9.9 fL N Slide Review (test code = Slide Review) Auto Auto Result crea rafiq by [id number] nRBC (test code = nRBC) 0 N NRBC Abs (test code = NRBC Abs) 0.00 x10 N IPF (test code = IPF) 0 % N Automated [id number] 06:45:50* Test Item Value Reference Range Interpretation Comme nts Neutro Auto (test code = [place] tro Auto) 42.3 % 36.0-70.0 Lymph Auto (test code = Lymph Auto) 49.9 % 12.0-44.0 H [place] Auto (test code = [place] Auto) 4.9 % 0.0-11.0 Eos, Auto (test code = Eos, Auto) 2.5 % 0.0-7.0 Basophil Auto (test code = B asophil Auto) 0.2 % 0.0-2.0 Neutro Absolute (test code = Neutro Absolute) 2.2 x10 1.6-7.4 Lymph Absolute (test code = Lymph Absolute) 2.64 x10 .50-4.60 [place] Absolute (test code = M tavo Absolute) .26 x10 .00-1.20 Eos Absolute (test code = Eo s Absolute) 0.13 x10 0.00-0.74 Baso Absolute (test code = B aso Absolute) 0.01 x10 0.00-0.21 IG [id number] 06:45:50* Test Item Value Reference Range Interpretation Comme nts IG (test code = IG) 0.2 % 0.0-5.0 IG Abs (test code = IG Abs) 0 x10 N
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
[2023-12-05 11:01] VITALS: BP 124/80; TEMP 98; O2SAT 100
== END ==
LOC: ER 08:59
DX: M54.50 Low back pain, unspecified (principal); V49.40XA Driver injured in collision with unspecified motor vehicles in traffic accident, initial encounter; Z88.7 Allergy status to serum and vaccine
CPT/HCPCS: 72100

== ENCOUNTER 2024-01-31 09:55 | Emergency (ER) | payer SELFPAY ==
--- OUTSIDE RECORDS SUMMARY | 2024-01-31 09:58 | XMS REPORT | Continuity of Care Document ---
Author Name Unknown Address [address] [place] [address] [facility] thconnect Address [address] [place] [address] Care Team Providers Care Logistics Planning Manager Name Role Phone PCP, PATIENT DOES NOT HAVE A Primary Care Physic amie Vazquez RN, Elidia Pavon Attending Clinician PARESH Ruelas Attending Clinician Unavailable Paresh Chris Attending Clinician [phone] Pob1, Acute Care Clinic Attending Clinician Pipo Sams MD Attending Clinician [phone] PARESH WALLS Admitting Clinician Unavailable Payers Payer Name Policy Type Policy Number Effective Date Expirati on Date Source MEDICAID GENERIC [id number] 2017 00:00:00 Problems Condition Name Condition Details Condition Category Status Onset Date Resolution Date Last Treatment Date Treating Clinician Comments Source No known active problems No known active problems Disease Univers [facility] [place] [place] Allergies, Adverse Reactions, Alerts Allergy Name Allergy Type Status Severity Reaction(s) Onset Date Inactive Date Treating Clinician Comments Source NO KNOWN ALLERGIE S Drug Class Active [facility] [place] [place] Social History Social Habit Start Date Stop Date Quantity Comments Source Sex Assigned At [facility] Smoking Status Start Date Stop Date Source Former smoker 2020-01-31 00:00:00 2020-01-31 00:00:00 [facility] Medications Ordered Medication Name Filled Medication Name Start Date Stop Date Current Medication? Ordering Clinician Indication Dosage Frequency Signature (SIG) Comments Components Source albuterol (VENTOLIN HFA) 90 mcg/actuati on inhaler 01-30 00:00: 00 03-02:59 :00 No [id number] 2{puff} Inhale 2 Puffs every 6 (six) hours as needed for Shortness of Breath or Chest tightness for up to 30 days. [facility] bromphenira mine-pseudo ephedrine-D M (BROMFED DM) 2-30-10 mg/5 mL syrup 01-30 00:00: 00 02-10 04:59 :00 No [id number] 5mL Take 5 mL by mouth 4 (four) times daily as needed for Congestion /Allergies or Cough for up to 10 days. [facility] Vital Signs Vital Name Observation Time Observation Value Comments S ource Systolic blood pressure 2020-01-31 20:31:00 128 mm[Hg] [facility] Diastolic blood pressure 2020-01-31 20:31:00 81 mm[Hg] [facility] Heart rate 2020-01-31 20:31:00 98 /min Un[facility] Body temperature 2020-01-31 20:31:00 37.44 Janet [facility] Respiratory rate 2020-01-31 20:31:00 22 /min [facility] Body height 2020-01-31 20:31:00 188 cm [facility] Body weight 2020-01-31 20:31:00 104.327 kg [facility] BMI 2020-01-31 20:31:00 29.53 kg/m2 [facility] Oxygen saturation in Arterial blood by Pulse oximetry 2020-01-31 20:31:00 99 /min [facility] Systolic blood pressure 2020-01-31 20:31:00 128 mm[Hg] [facility] Diastolic blood pressure 2020-01-31 20:31:00 81 mm[Hg] [facility] Heart rate 2020-01-31 20:31:00 98 /min [facility] Body temperature 2020-01-31 20:31:00 37.44 Janet [facility] Respiratory rate 2020-01-31 20:31:00 22 /min [facility] Body height 2020-01-31 20:31:00 188 cm [facility] Body weight 2020-01-31 20:31:00 104.327 kg [facility] BMI 2020-01-31 20:31:00 29.53 kg/m2 [facility] Oxygen saturation in Arterial blood by Pulse oximetry 2020-01-31 20:31:00 99 /min [facility] Procedures Procedure Date / Time Performed Performing Clinicia n Source XR CHEST 2 VW COVID 2020-01-31 21:20:02 Paresh Walls [facility] Encounters Start Date/Time End Date/Time Encounter Type Admission Type Attending Clinicians Care Facility Care Department Encounter ID Source 2024-01-26 15:45:39 2024-01-26 15:45:39 Outpatient [facility] [id number] Jonatan Moreno Juan 2020-02-01 00:00:00 2020-02-01 00:00:00 [facility] [id number] 2020-02-01 00:00:00 2020-02-01 00:00:00 [facility] [id number] [facility] 2020-01-31 16:04:18 2020-01-31 23:59:00 Outpatient R PARESH WALLS [facility] [id number] [facility] 2020-01-31 16:04:00 2020-01-31 23:59:00 Hospital Encounter Paresh Walls [facility] [id number] 2020-01-31 16:04:00 2020-01-31 23:59:00 Hospital Encounter Paresh Walls [facility] [id number] [facility] 2020-01-31 15:20:10 2020-01-31 15:40:10 Urgent Care Pob1, Acute Care Clinic [facility] [address] [id number] 2020-01-31 15:20:10 2020-01-31 15:40:10 Urgent Care Pob1, Acute Care Clinic Pipo Recio [facility] [address] [id number] [facility] Results Test Description Test Time Test Comments Results Result Comments Source XR CHEST 2 VW COVID 21:32:39 1. No acute intrathoracic abnormality, specifically no detectableradiographic findings to suggest COVID-19 pneumonia. Disclaimer: Generally, the findings on chest imaging in COVID-19 are notspecific, and overlap with other infections, including influenza, H1N1,SARS and MERS.According to the Centers for Disease Control (CDC) and the [employer] [employer], viral testing remains the only specific method of diagnosiseven if CXR or CT findings are suggestive of COVID-19. PROCEDURE: CHEST XRAY 2 view, CLINICAL INDICATION: cough, chest tightening, fever, vapes daily COMPARISON: None FINDINGS: Lungs: Lungs are clear. No focal consolidation is identified. Pleura: No pleural effusion or pneumothorax is seen. The heart is normal insize. No acute bony abnormality. [facility], Radiant Results Inft User - 01/31/2020 4:33 [...] Centers for Disease Control (CDC) and the [employer], viral testing remains the only specific method of diagnosiseven if CXR or CT findings are suggestive of COVID-19. [facility] Thyroid Stimulating [id number] 07:26:09* Test Item Value Reference Range Interpretation Comme nts TSH (test code = TSH) 1.610 mIU/mL 0.270-4.200 Lipid [id number] 07:06:07* Test Item Value Reference Range Interpretation Comme nts Cholesterol Total (test code = Cholesterol Total) 129 mg/dL 0-200 RISK OF HEART DISEASEPublished by [place] [employer] Analyte Optimal Borderline Increased RiskCHOL [...] is LDL/HDL Ratio=LDL Calc/HDL Chol Comprehensive Metabolic [id number] 07:01:50* Test Item Value Reference Range Interpretation [...] A/G Ratio) 1.6 ratio N Comprehensive Metabolic [id number] 07:01:50* Test Item Value Reference Range Interpretation [...] is not provided, and the patient is -[place], multiply by 1.212. If sex is not [...] by the National Kidney Foundation, http://nkdep.nih.gov Alcohol [id number] 07:01:50* Test Item Value Reference Range Interpretation Comme nts Ethanol Level (test code = Ethanol Level) <0.00 g/dL 0.00-0.01 Intoxicated 0.08 0 g/dL or more Ethanol Inst (test code = Ethanol Inst) <0 N Comprehensive Metabolic [id number] 07:01:50* Test Item Value Reference Range Interpretation [...] is not provided, and the patient is -[place], multiply by 1.212. If sex is not [...] is not provided, and the patient is -[place], multiply by 1.212. If sex is not [...] Kidney Foundation, http://nkdep.nih.gov Complete Blood Count with [id number] 06:45:50* Test Item Value Reference Range Interpretation [...] code = IPF) 0 % N Automated [id number] 06:45:50* Test Item Value Reference Range Interpretation Comme nts Neutro Auto (test code = Everette tro Auto) 42.3 % 36.0-70.0 Lymph Auto (test code = Lymph Auto) 49.9 % 12.0-44.0 H Cook Auto (test code = Cook Auto) 4.9 % 0.0-11.0 Eos, Auto (test code = Eos, Auto) 2.5 % 0.0-7.0 Basophil Auto (test code = B asophil Auto) 0.2 % 0.0-2.0 Neutro Absolute (test code = Neutro Absolute) 2.2 x10 1.6-7.4 Lymph Absolute (test code = Lymph Absolute) 2.64 x10 .50-4.60 Cook Absolute (test code = M tavo Absolute) .26 x10 .00-1.20 Eos Absolute (test code = Eo s Absolute) 0.13 x10 0.00-0.74 Baso Absolute (test code = B aso Absolute) 0.01 x10 0.00-0.21 IG [id number] 06:45:50* Test Item Value Reference Range Interpretation Comme nts IG (test code = IG) 0.2 % 0.0-5.0 IG Abs (test code = IG Abs) 0 x10 N
--- NOTE | 2024-01-31 10:21 | EDPHYS ---
Physician Documentation [facility] Name: Michael Degroot Age: 38 yrs Sex: Male : 1985 Arrival Date: 01/31/2024 Time: 09:55 Bed 19 Private MD: ED Physician Vern Spencer HPI: 01/30 10:19 This 38 yrs old Male presents to ER via Ambulatory with complaints of Flu ec2 Symptoms. 10:19 Patient arrives today for evaluation of cough and cold symptoms. Patient reports been ec2 having approximately 2 weeks of symptoms. Patient reports some general body aches, decreased p.o. intake, no nausea or vomiting. Does report some bouts of diarrhea. Patient reports that he is taking qxiw-vah-smxuhho medications with minimal improvement in symptoms.. Historical: - Allergies: 10:06 Tetanus-Diphtheria Toxoids-Td; ll1 - PMHx: 10:06 Hepatitis; ll1 - Immunization history:: Adult Immunizations up to date. - Infectious Disease History:: Denies. - Social history:: Smoking status: Patient denies any tobacco usage or history of. ROS: 10:19 Constitutional: as per hpi ec2 Exam: 10:19 Constitutional: GEN: NAD Head: atraumatic Eyes: EOMI Ears: External ears are ec2 normal. CV: regular rate LUNGS: no respiratory distress, no wheezes, rales, or rhonchi ABD: non-distended, soft, nontender, no guarding, not rigid SKIN: no evidence of rashes MSK: no evidence of trauma NEURO: moves all extremities equally Vital Signs: 10:06 BP 133 / 91; Pulse 84; Resp 17; Temp 97.4; Pulse Ox 97% ; Weight 117.03 kg; Height 6 ll1 ft. 2 in. ; Pain 6/10; 10:10 BP 133 / 86; Pulse 81; Resp 16; Pulse Ox 94% ; bp 10:06 Body Mass Index 33.12 (117.03 kg, 187.96 cm) ll1 10:06 Pain Scale: Adult ll1 MDM: 10:07 Patient medically screened. ec2 10:19 Data reviewed: vital signs. ED course: Patient arrives today for URI signs and ec2 symptoms. Examination remarkable for well-appearing nontoxic dividual is otherwise in no acute distress with reassuring cardiopulmonary examination. Suspect possible viral symptoms, given the duration of symptoms of greater than 10 days, possible bacterial sinusitis, will start the patient on antibiotics and follow-up primary care doctor.. Administered Medications: 10:37 Drug: Amoxicillin-Clavulanate PO 875 mg PO once Route: PO; bp 10:37 Follow up: Response: No adverse reaction bp Disposition Summary: 01/31/24 10:21 Discharge Ordered Notes: Location: Home ec2 Condition: Stable ec2 Diagnosis - Other acute sinusitis ec2 Followup: ec2 - With: Private Physician - When: - Reason: Re-evaluation by your physician Discharge Instructions: - Discharge Summary Sheet ec2 - Sinusitis, Adult ec2 Forms: - Medication Reconciliation Form ec2 - Thank You Letter ec2 - Antibiotic Education ec2 - Prescription Opioid Use ec2 - Patient Portal Instructions ec2 - Leadership Thank You Letter ec2 Prescriptions: - Augmentin 875-125 mg Oral tablet - take 1 tablet ORAL route every 12 hours for 5 days; 10 tablet; Refills: 0, ec2 Product Selection Permitted Signatures: Osmar Mclaughlin RN RN Leona Kaminski RN RN [facility] Vern Spencer MD MD ec2
--- NOTE | 2024-01-31 10:21 | ER ---
Nurse's Notes [facility] Name: Michael Degroot Age: 38 yrs Sex: Male : 1985 Arrival Date: 01/31/2024 Time: 09:55 Bed 19 Private MD: Diagnosis: Other acute sinusitis Presentation: 01/30 10:06 Chief complaint: Patient states: Cough, congestion, fatigue, SOB for 2 weeks. Low back ll1 pain for 3 days. +chills/sweats. Coronavirus screen: Client denies travel out of the [place] in the last 14 days. congestion, cough unrelated to allergies, fatigue, fever, headache, muscle pain, Client presents with at least one sign or symptom that may indicate coronavirus-19. Standard/surgical mask placed on the client. Ebola Screen: Patient denies travel to an Ebola-affected area in the 21 days before illness onset. Initial Sepsis Screen: Does the patient meet any 2 criteria? No. Patient's initial sepsis screen is negative. Does the patient have a suspected source of infection? No. Patient's initial sepsis screen is negative. Risk Assessment: Do you want to hurt yourself or someone else? Patient reports no desire to harm self or others. Onset of symptoms was January 17, 2024. 10:06 Method Of Arrival: Ambulatory ll1 10:06 Acuity: DARVIN 4 ll1 Triage Assessment: 10:10 General: Appears in no apparent distress. Behavior is cooperative, appropriate for age, bp anxious. Pain: Denies pain. Respiratory: Reports shortness of breath. Historical: - Allergies: 10:06 Tetanus-Diphtheria Toxoids-Td; ll1 - PMHx: 10:06 Hepatitis; ll1 - Immunization history:: Adult Immunizations up to date. - Infectious Disease History:: Denies. - Social history:: Smoking status: Patient denies any tobacco usage or history of. Screenin:10 [facility] ED Fall Risk Assessment (Adult) History of falling in the last 3 months, bp including since admission No falls in past 3 months (0 pts). Abuse screen: Denies threats or abuse. Denies injuries from another. Nutritional screening: No deficits noted. Tuberculosis screening: No symptoms or risk factors identified. Assessment: 10:10 General: SEE TRIAGE NOTE. bp Vital Signs: 10:06 BP 133 / 91; Pulse 84; Resp 17; Temp 97.4; Pulse Ox 97% ; Weight 117.03 kg; Height 6 ll1 ft. 2 in. ; Pain 6/10; 10:10 BP 133 / 86; Pulse 81; Resp 16; Pulse Ox 94% ; bp 10:06 Body Mass Index 33.12 (117.03 kg, 187.96 cm) ll1 10:06 Pain Scale: Adult ll1 ED Course: 09:58 Patient arrived in ED. im 09:58 Vern Spencer MD is Attending Physician. ec2 10:06 Arm band placed on Patient placed in an exam room, on a stretcher. ll1 10:07 Osmar Mclaughlin, RN is Primary Nurse. bp 10:08 Triage completed. ll1 10:10 Patient has correct armband on for positive identification. bp 10:10 No provider procedures requiring assistance completed. Patient did not have IV access bp during this emergency room visit. Administered Medications: 10:37 Drug: Amoxicillin-Clavulanate PO 875 mg PO once Route: PO; bp 10:37 Follow up: Response: No adverse reaction bp Medication: 10:10 VIS not applicable for this client. bp Outcome: 10:21 Discharge ordered by . ec2 10:40 Discharged to home ambulatory, bp 10:40 Condition: stable 10:40 Discharge instructions given to patient, Instructed on discharge instructions, follow up and referral plans. medication usage, Demonstrated understanding of instructions, follow-up care, medications, Prescriptions given X 1, 11:00 Patient left the ED. bd Signatures: Arelis Saldana Osmar Mclaughlin, Leona Whitlock RN, RN RN [facility] Anai Moore Vern Spencer MD MD ec2
[2024-01-31] MEDS ORDERED: AMOX/K CLAV 875 MG TAB ONE (10:35)
[2024-01-31 11:16] VITALS: BP 133/86; TEMP 97.4; O2SAT 94
== END 2024-01-31 11:00 | disposition home or self-care (01) ==
LOC: ER 09:55
DX: J01.80 Other acute sinusitis (principal); Z88.7 Allergy status to serum and vaccine
CPT/HCPCS: 99283

== ENCOUNTER 2024-09-15 13:54 | Emergency (ER) | payer OTHER ==
--- OUTSIDE RECORDS SUMMARY | 2024-09-15 13:57 | XMS REPORT | Continuity of Care Document ---
Author Name Unknown Address [address] [facility] [address] [place] [id number] [facility] thconnect Address [address] [facility] [address] [place] [address] Care Team Providers Care Clinical Staff Pharmacist Name Role Phone PCP, PATIENT DOES NOT HAVE A Primary Care Physic amie Unavailable ERICA OLSON Attending Clinician Unavailable VANDANA CHAVIS Attending Clinician Unavailable NT90 Attending Clinician Unavailable Bharath Aaron PA-C Attending Clinician [phone] BHARATH AARON Attending Clinician Unavailable BHARATH AARON Attending Clinician Unavailable Elidia Vazquez RN Attending Clinician Unava ilKACI Manning Attending Clinician Unavailable Kaci Chris Attending Clinician [phone] [facility] Acute [facility] Attending Clinician Pipo Sams MD Attending Clinician [phone] BHARATH AARON Admitting Clinician Unavailable KACI KILGORE Admitting Clinician Unavailable Payers Payer Name Policy Type Policy Number Effective Date Expirati on Date Source AET[employer] MP [facility] 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 [place] 9 [id number] 2024 00:00:00 [employer] 2 [id number] 2024 00:00:00 MEDICAID GENERIC [id number] 2017 00:00:00 2024 00:00:00 Problems Condition Name Condition Details Condition Category Status Onset Date Resolution Date Last Treatment Date Treating Clinician Comments Source Chronic hepatitis C without hepatic coma (multi HCC) Chronic hepatitis C without hepatic coma (multi HCC) Disease Active 2023-10 00:00: 00 Ree Odonnell - Dottya l Pneumonia of right lower lobe due to Pneumocyst is jirovecii (multi HCC) Pneumonia of right lower lobe due to Pneumocyst is jirovecii (multi HCC) Disease Active 2023-10 00:00: 00 Ree Odonnell - Externa l Hospital discharge follow-up Hospital discharge follow-up Disease Active 2023-10 00:00: 00 Ree Jorgensen Externa l No known active problems No known active problems Disease [facility] Hepatitis C Hepatitis C Disease Active Ree Odonnell - Externa andre History of narcotic addiction (multi HCC) History of narcotic addiction (multi HCC) Disease Active Ree Odonnell - Externa l Allergies, Adverse Reactions, Alerts Allergy Name Allergy Type Status Severity Reaction(s) Onset Date Inactive Date Treating Clinician Comments Source NO KNOWN ALLERGIE S Drug Class Active [facility] Social History Social Habit Start Date Stop Date Quantity Comments Source Sexual orientation Julieth romain Odonnell - External History of Occupation Ree Odonnell - External History of tobacco use Snuff User Ree Odonnell - External Alcoholic beverage intake 2024-09-10 00:00:00 2024-09-10 00:00:00 Ex-drinker (finding) Ree Odonnell - External History of Social function 2024-09-10 00:00:00 2024-09-10 00:00:00 Ree Odonnell - External Education 2024-09-10 00:00:00 2024-09-10 00:00:00 16 Ree Odonnell - External Cigarettes smoked current (pack per day) - Reported 2024-09-10 00:00:00 2024-09-10 00:00:00 Ree Odonnell - External Cigarette pack-years 2024-09-10 00:00:00 2024-09-10 00:00:00 Ree Odonnell - External Tobacco use and exposure 2024-09-10 00:00:00 2024-09-10 00:00:00 User of smokeless tobacco Ree Odnonell - External Sex 2024-08-31 11:07:28 2024-08-31 11:07:28 Male (finding) Ree Jorgensen External Sex assigned at 1985 00:00:00 1985 00:00:00 Ree Pickett Smoking Status Start Date Stop Date Source Ex-smoker 2024-09-10 00:00:00 2024-09-10 00:00:00 Julieth hoyos Blas - External Medications Ordered Medication Name Filled Medication Name Start Date Stop Date Current Medication? Ordering Clinician Indication Dosage Frequency Signature (SIG) Comments Components Source Ibuprofen (MOTRIN) 200 MG oral Tablet 2023-10 11:22: 42 Yes 200mg Q.25D Take 1 tablet (200 mg total) by mouth every 6 hours as needed for pain. Ree powell TRIMETHOPRI M-SULFAMETH OXAZOLE (BACTRIM DS) 800-160 MG oral Tablet 2023-10 00:00: 00 Yes 1{tbl} Q.5D Take 1 tablet by mouth 2 times daily. Ree powell predniSONE (DELTASONE) 20 MG oral tablet 2023-10 00:00: 00 Yes 20mg QD Take 1 tablet (20 mg total) by mouth daily. Ree powell Albuterol Sulfate 1.25 MG/3ML inhalation Inhalant Solution 2023-10 00:00: 00 Yes 1.25mg Q.25D Take 3 mL (1.25 mg total) by nebulizati on every 6 hours as needed for shortness of breath (pneumonia ). Ree powell ibuprofen (IBU) tablet 600 mg 2023-10 17:45: 00 08-06 17:38 :00 No 600mg 600 mg, Oral, ONCE, 1 dose, On Tue08/06/24 at 1245, IGNACIO [facility] albuterol (PROVENTIL) 2.5 mg /3 mL (0.083 %) nebulizer solution 2.5 mg 2023-10 14:30: 00 08-06 14:37 :00 No 2.5mg 2.5 mg, Inhalation , ONCE, 1 dose, On Tue08/06/24 at 0930, STAT [facility] dexamethaso ne sod phos PF injection 10 mg 2023-10 14:30: 00 08-06 14:35 :00 No 10mg 10 mg, Intramuscu lar, ONCE, 1 dose, On Tue08/06/24 at 0930, 1 mL [facility] Albuterol HFA 108 (90 Base) MCG/ACT IN AERS 2023-10 00:00: 00 Yes 2{puff} Q4H Inhale 2 puffs into the lungs every 4 hours as needed. eRe Odonnell - Externa l azithromyci n 250 mg tablet 2023-10 00:00: 00 08-12 04:59 :00 Yes [id number] Take 2 tablets by mouth daily for 1 day, THEN 1 tablet daily for 4 days. [facility] albuterol (VENTOLIN HFA) 90 mcg/actuati on inhaler 01-30 00:00: 00 03-02 04:59 :00 No [id number] 2{puff} Inhale 2 Puffs every 6 (six) hours as needed for Shortness of Breath or Chest tightness for up to 30 days. [facility] bromphenira mine-pseudo ephedrine-D M (BROMFED DM) 2-30-10 mg/5 mL syrup 01-30 00:00: 00 02-10 04:59 :00 No [id number] 5mL Take 5 mL by mouth 4 (four) times daily as needed for Congestion /Allergies or Cough for up to 10 days. [facility] Vital Signs Vital Name Observation Time Observation Value Comments S ource Systolic blood pressure 2024-09-10 17:25:00 118 mm[Hg] Ree palacios - External Diastolic blood pressure 2024-09-10 17:25:00 78 mm[Hg] Ree palacios - External Heart rate 2024-09-10 17:25:00 88 /min Neelam Odonnell - External Body temperature 2024-09-10 17:25:00 37 Janet Ree Odonnell - External Body height 2024-09-10 17:25:00 188 cm Kika ey Seybold - External Body weight 2024-09-10 17:25:00 116.121 kg Kika ey Seybold - External BMI 2024-09-10 17:25:00 32.87 kg/m2 Kika ey Seybold - External Oxygen saturation in Arterial blood by Pulse oximetry 2024-09-10 17:25:00 98 /min Reeminal Nelsono ld - External Systolic blood pressure 2024-08-06 17:38:00 124 mm[Hg] [facility] Diastolic blood pressure 2024-08-06 17:38:00 78 mm[Hg] [facility] Heart rate 2024-08-06 17:38:00 91 /min [facility] Oxygen saturation in Arterial blood by Pulse oximetry 2024-08-06 17:38:00 96 /min [facility] Respiratory rate 2024-08-06 14:48:00 16 /min [facility] Body temperature 2024-08-06 13:54:00 36.89 Janet [facility] Body height 2024-08-06 13:54:[address] [facility] Body weight 2024-08-06 13:54:[address] [facility] BMI 2024-08-06 13:54:00 33.38 kg/m2 [facility] Systolic blood pressure 2020-01-31 20:31:00 128 mm[Hg] [facility] Diastolic blood pressure 2020-01-31 20:31:00 81 mm[Hg] [facility] Heart rate 2020-01-31 20:31:00 98 /min [facility] Body temperature 2020-01-31 20:31:00 37.44 Janet [facility] Respiratory rate 2020-01-31 20:31:00 22 /min [facility] Body height 2020-01-31 20:31:[address] [facility] Body weight 2020-01-31 20:31:[address] [facility] BMI 2020-01-31 20:31:00 29.53 kg/m2 [facility] Oxygen saturation in Arterial blood by Pulse oximetry 2020-01-31 20:31:00 99 /min [facility] Systolic blood pressure 2020-01-31 20:31:00 128 mm[Hg] [facility] Diastolic blood pressure 2020-01-31 20:31:00 81 mm[Hg] [facility] Heart rate 2020-01-31 20:31:00 98 /min [facility] Body temperature 2020-01-31 20:31:00 37.44 Janet [facility] Respiratory rate 2020-01-31 20:31:00 22 /min [facility] Body height 2020-01-31 20:31:[address] [facility] Body weight 2020-01-31 20:31:[address] [facility] BMI 2020-01-31 20:31:00 29.53 kg/m2 [facility] Oxygen saturation in Arterial blood by Pulse oximetry 2020-01-31 20:31:00 99 /min [facility] Procedures Procedure Date / Time Performed Performing Clinicia n Source CT THORAX WO CONTRAST 2024-08-06 15:50:25 Abilio Aaron [facility] XR CHEST 2 VW 2024-08-06 15:00:30 Bharath Aaron [facility] COMP. METABOLIC PANEL (61811) 2024-08-06 14:31:00 Bharath Aaron [facility] CBC WITH DIFF 2024-08-06 14:31:00 Bharath Aaron [facility] COVID-19 (ID NOW RAPID TESTING) 2024-08-06 14:31:00 Bharath Aaron [facility] XR CHEST 2 VW COVID 2020-01-31 21:20:02 Kaci Kilgore [facility] Encounters Start Date/Time End Date/Time Encounter Type Admission Type Attending Clinicians Care Facility Care Department Encounter ID Source 2024-10-29 16:00:00 2024-10-29 16:00:00 Outpatient ERICA OLSON [id number] Ree Odonnell 2024-10-29 11:15:00 2024-10-29 11:15:00 Outpatient ERICA OLSON [id number] [facility] 2024-10-03 08:00:00 2024-10-03 08:00:00 Outpatient VANDANA CHAVIS [id number] [facility] 2024-09-13 00:00:00 2024-09-13 00:00:00 Outpatient ERICA OLSON [id number] [facility] 2024-09-11 00:00:00 2024-09-11 00:00:00 Outpatient REE EVERETT [id number] [facility] 2024-09-10 11:30:00 2024-09-10 11:30:00 Outpatient ERICA OLSON [id number] [facility] 2024-09-03 11:15:00 2024-09-03 11:15:00 Outpatient NT90 REE EVERETT [id number] [facility] 2024-08-06 08:55:00 2024-08-06 12:46:00 Emergency Bharath Aaron AT [facility] [id number] [facility] 2024-08-06 08:55:00 2024-08-06 12:46:00 Emergency X BHARATH AARON JOSHUA [facility] [id number] [facility] 2024-01-26 15:45:39 2024-01-26 15:45:39 Outpatient [facility] [id number] Jonatan F Juan 2020-02-01 00:00:00 2020-02-01 00:00:[facility] [id number] [id number] [id number] [facility] 2020-02-01 00:00:00 2020-02-01 00:00:[facility] [id number] [id number] 2020-01-31 16:04:18 2020-01-31 23:59:00 Outpatient R KACI KILGORE [facility] [id number] [facility] 2020-01-31 16:04:00 2020-01-31 23:59:00 Hospital Encounter Kaci Kilgore [facility] [id number] [id number] [facility] 2020-01-31 16:04:00 2020-01-31 23:59:00 Hospital Encounter Kaci Kilgore [facility] [id number] [id number] [id number] 2020-01-31 15:20:10 2020-01-31 15:40:10 Urgent Care [facility], Acute Care Clinic [facility] [id number] [id number] [id number] [facility] 2020-01-31 15:20:10 2020-01-31 15:40:10 Urgent Care Po, Acute Care [facility] [id number] [id number] [id number] Results Test Description Test Time Test Comments Results Resul t Comments Source CT THORAX WO CONTRAST 2024-07-24 4 17:01:35 CT SCAN OF THE CHEST WITHOUT IV CONTRAST HISTORY: Diffuse/interstitial lung disease Ordering physician: BHARATH AARON COMPARISON: ?None TECHNIQUE: Axial CT scan of the chest. Coronal and sagittal reformatted images. Intravenous Contrast: None. CT scan was performed according to ALARA (as low as reasonably achievable)principle. RESULT:Lack of intravenous contrast decreases the sensitivity of this examination. LUNGS: ?There are small alveolar opacities of the lungs, predominantly central.There are few air bronchograms present. There are also groundglass tree-in-bud opacities of the peripheral lungs. There is opacification of the medial right lower lobe. There is no pleural effusion. The central airways are patent without endobronchial obstruction. MEDIASTINUM, CARDIOVASCULAR, AND PLEURA:The superior mediastinum and great vessels are unremarkable. There is no evidence of intrathoracic lymphadenopathy. There are fewsubcentimeter mediastinal lymph nodes present, likely reactive. There arefew subcentimeter calcified lymph nodes of the left hilum. The heart is unremarkable in size. There is no pericardial effusion. Thereis minimal aortic annulus calcification. THYROID GLAND: ?The partially visualized thyroid gland is grosslyunremarkable. SOFT TISSUES: ?There is no axillary adenopathy identified BONES: ?Degenerative changes of the thoracic spine are present. UPPER ABDOMEN: ?The visualized portions of the upper abdomen are grossly within normallimits on this noncontrast CT. [facility] XR CHEST 2 VW 2024-07- 4 15:12:21 EXAM: XR CHEST 2 VW COMPARISON: Chest radiograph dated 02/10/2020 HISTORY: 38 years old Male with cough of one-month duration. Patient hassimilar cough in November which lasted for a few months and resolved. FINDINGS: Normal lung volumes. Perihilar bronchial thickening is noted. Diffuseperihilar and peripheral interstitial and reticulonodular airspaceopacities are noted. The middle lung zones are relatively well aerated. Normal heart size.No acute osseous abnormality. [facility] [id number] 21:32:391. No acute intrathoracic abnormality, specifically no detectableradiographic findings to suggest COVID-19 pneumonia. Disclaimer: Generally, the findings on chest imaging in COVID-19 are notspecific,and overlap with other infections, including influenza, H1N1,SARS and MERS.According to the Centersfor Disease Control (CDC) and the [place] [employer], viral testing remains the only specific method of diagnosiseven if CXR or CT findings are suggestive of COVID-19. PROCEDURE: CHEST XRAY2 view, CLINICAL INDICATION: cough, chest tightening, fever, vapes daily COMPARISON: None FINDINGS:Lungs: Lungs are clear. No focal consolidation is identified. Pleura: No pleural effusion or pneumothorax is seen. The heart is normal insize. No acute bony abnormality. [facility], Radiant Results Inft User - 01/31/2020 4:33 PM CDTPROCEDURE: CHEST XRAY 2 view, CLINICAL INDICATION: cough, chest tightening, fever, vapes daily COMPARISON: NoneFINDINGS:Lungs: Lungs are clear. No focal consolidation is iden tified.Pleura: No pleural effusion or pneumothorax is seen. The heart is normal insize.No acute bony abnormality.IMPRESSION1. No acute intrathoracic abnormality, specifically no detectableradiographic findings to suggest COVID-19 pneumonia.Disclaimer: Generally, the findings on chest imaging in COVID-19 are notspecific, and overlap with other infections, including influenza, H1N1,SARS and MERS.According to the Centers for Disease Control (CDC) and the [place] [employer], viral testingremains the only specific method of diagnosiseven if CXR or CT findings are suggestive of COVID-19.[facility] [id number] 18:05:50* Test Item Value Reference Range Interpretation Comme nts RPR Qual (test code = RPR Qual) Non-Reactive Non-Reactive Reactive Control (test code = Reactive Control) Reactive Weak Reactive Control (test code = Weak Reactive Control) Weak Reactive Non-Reactive Control (test c ode = Non-Reactive Control) Non-Reactive Lot # (test code = Lot #) [id number] N Expiration Dt (test code = Expiration Dt) 4.30.20 N Thyroid Stimulating [id number] 07:26:09* Test Item Value Reference Range Interpretation Comme nts TSH (test code = TSH) 1.610 mIU/mL 0.270-4.200 Lipid [id number] 07:06:07* Test Item Value Reference Range Interpretation Comme nts Cholesterol Total (test code = Cholesterol Total) 129 mg/dL 0-200 RISK OF HEART DISEASEPublished by [place] [employer] Analyte Optimal Borderline Increased RiskCHOL [...] is LDL/HDL Ratio=LDL Calc/HDL Chol Comprehensive Metabolic [id number] 07:01:50* Test Item Value Reference Range Interpretation [...] A/G Ratio) 1.6 ratio N Comprehensive Metabolic [id number] 07:01:50* Test Item Value Reference Range Interpretation [...] is not provided, and the patient is -[place], multiply by 1.212. If sex is not [...] by the National Kidney Foundation, http://nkdep.nih.gov Alcohol [id number] 07:01:50* Test Item Value Reference Range Interpretation Comme nts Ethanol Level (test code = Ethanol Level) <0.00 g/dL 0.00-0.01 Intoxicated 0.08 0 g/dL or more Ethanol Inst (test code = Ethanol Inst) <0 N Comprehensive Metabolic [id number] 07:01:50* Test Item Value Reference Range Interpretation [...] is not provided, and the patient is -[place], multiply by 1.212. If sex is not [...] is not provided, and the patient is -[place], multiply by 1.212. If sex is not [...] Kidney Foundation, http://nkdep.nih.gov Complete Blood Count with [id number] 06:45:50* Test Item Value Reference Range Interpretation [...] code = IPF) 0 % N Automated [id number] 06:45:50* Test Item Value Reference Range Interpretation Comme nts Neutro Auto (test code = Everette tro Auto) 42.3 % 36.0-70.0 Lymph Auto (test code = Lymph Auto) 49.9 % 12.0-44.0 H Major Auto (test code = Major Auto) 4.9 % 0.0-11.0 Eos, Auto (test code = Eos, Auto) 2.5 % 0.0-7.0 Basophil Auto (test code = B asophil Auto) 0.2 % 0.0-2.0 Neutro Absolute (test code = Neutro Absolute) 2.2 x10 1.6-7.4 Lymph Absolute (test code = Lymph Absolute) 2.64 x10 .50-4.60 Major Absolute (test code = M tavo Absolute) .26 x10 .00-1.20 Eos Absolute (test code = Eo s Absolute) 0.13 x10 0.00-0.74 Baso Absolute (test code = B aso Absolute) 0.01 x10 0.00-0.21 IG [id number] 06:45:50* Test Item Value Reference Range Interpretation Comme nts IG (test code = IG) 0.2 % 0.0-5.0 IG Abs (test code = IG Abs) 0 x10 N Notes Date/Time Note Provider Source 2024-09-10 11:26:26 Juan Carlos Degroot is a 38 year old male in for post hospital follow up on pneumonia he has had for 2 months. Found out last week has Hepatitis C and HIV. [facility] 2024-08-06 12:43:38 Pt given printed and verbal discharge instructions regarding atypical pneumonia, encouraged hydration, Prescriptions provided x2 Discussed ibuprofen and to take with food to avoid GI distress. Discussed antibiotic therapy and to take until all completed unless adverse reaction occurs - if occurs, discontinue medication and follow up with pcp/seek medical attention Pt verbalized understanding of instructions, pt awake alert oriented, resp reg unlabored, skin w/d, color appropriate for race, moves all ext well,pt encouraged to follow up with pcp. Advised to seek medical attention for new/prolonged/worsening of symptoms. No adverse reaction to meds given in ER noted upon discharge PIV d'cd, dressing to site, catheter in tact. Awake, alert oriented, resp reg unlabored, skin w/d, pt leaving amb with steady gait, in no apparent distress. Lia Tijerina RN [facility] 2024-08-06 08:51:47 Patient reports having cough for about a month with body aches and fatigue. Stated it happened before in November and lasted a few months and went away. He is concerned because he has coughing fits that he can't stop and then he vomits. Daquan Victor RN [facility]
[2024-09-15] MEDS ORDERED: NA CHLORIDE 0.9% 50 ML ONE (15:44)
[2024-09-15] MEDS ORDERED: METOCLOPRAMIDE 10 MG/2mL INJ ONE (15:44)
[2024-09-15 15:58] LABS: Absolute Eosinophils 0.1 K/uL (0-0.5); Absolute Lymphocytes (CBC) 0.5 K/uL (0.7-4.9); Absolute Monocytes 0.2 K/uL (0.1-1.3); Absolute Neutrophil 1.7 K/uL (1.8-8.0); Basophils % 0.4 % (0-1.3); Eosinophils % 3.7 % (0-4.4); Hematocrit 34.6 % (39.6-49.0); Hemoglobin 11.8 g/dL (13.6-17.9); Lymphocytes % 21.3 % (15.3-44.8); MCH 29.8 pg (27.0-35.0); MCHC 34.1 g/dL (32.0-36.0); MCV 87.3 fL (80-100); MPV 7.6 fL (7.6-11.3); Neutrophils % 66.6 % (41.7-73.7); Nucleated Red Blood Cells % 0.1 % (0-0); Platelets 109 thou/uL (152-406); RBC Red Blood Cell Count 3.96 M/uL (4.33-5.43); Red Cell Distribution Width 15.4 % (12.1-15.2)
[2024-09-15 16:29] LABS: Band Neutrophils 2 % (0-1); Differential Total Cells Count 100; Eosinophils 2 % (0-3); Lymphocytes 22 % (15-42); Metamyelocytes 2 % (0-0); Monocytes 6 % (0-10); Platelet Estimate ADEQ; Segmented Neutrophils 66 % (40-80)
[2024-09-15 16:30] LABS: Anisocytosis SLIGHT; Blood Morphology Comment NOTED (NOT SEEN); Ovalocytes SLIGHT; Poikilocytosis SLIGHT; Teardrop Cell FEW
--- NOTE | 2024-09-15 16:49 | EDPHYS ---
Physician Documentation [facility] Name: Michael Degroot Age: 38 yrs Sex: Male : 1985 Arrival Date: 09/15/2024 Time: 13:54 Bed 15 Private MD: ED Physician Jf Schreiber HPI: 09/15 15:37 This 38 yrs old Male presents to ER via Ambulatory with complaints of Stomach pain hot bo1 facial sensation. 15:37 Facial erythema since last night. Feels itchy and flushed. Also, in both arms. Started bo1 on abx after dx of HIV - 09/04. Onset: The symptoms/episode began/occurred suddenly. Historical: - Allergies: 14:32 No Known Allergies; cm10 - PMHx: 14:32 Hepatitis; HIV positive; cm10 - PSHx: 14:32 None; cm10 - Immunization history:: Adult Immunizations up to date. - Infectious Disease History:: Denies. - Social history:: Pt reports prior drug use and hx of bisexual behavior, Smoking status: Patient reports use of chewing tobacco. Patient denies any tobacco usage or history of. ROS: 16:41 Constitutional: Negative for fever, chills, and weight loss bo1 16:41 Abdomen/GI: Positive for nausea, diarrhea, constipation, Fullness in the LUQ of the abd since the Bactrim rx, 16:41 Skin: Positive for erythema, rash, Face and upper neck and UE bilaterally, Exam: 16:43 Constitutional: This is a well developed, well nourished patient who is awake, alert, bo1 and in no acute distress. 16:43 Head/face: Noted is rash, of the forehead, right eye, right cheek, nose, left cheek, left eye, chin, right jaw and left jaw, Rash. 16:43 ENT: Exam is negative for acute changes, 16:43 Neck: External neck: is normal, 16:43 Cardiovascular: Rate: normal, Rhythm: regular, Pulses: no pulse deficits are appreciated, 16:43 Respiratory: the patient does not display signs of respiratory distress, Respirations: normal, Breath sounds: decreased breath sounds, wheezing: is not appreciated, 16:43 Abdomen/GI: Inspection: abdomen appears normal, Bowel sounds: normal, Palpation: abdomen is soft and non-tender, rebound tenderness, is not appreciated, 16:43 Musculoskeletal/extremity: Calves: are non-tender, 16:43 Skin: rash a mild rash is noted, rash can be described as erythematous, on the face, right arm and left arm, 16:43 Neuro: Orientation: is normal, appropriate for stated age, Mentation: is normal, appropriate for stated age, Vital Signs: 14:30 BP 128 / 79; Pulse 102; Resp 18; Temp 98.1(O); Pulse Ox 99% on R/A; Weight 116.12 kg; cm10 Height 6 ft. 2 in. ; Pain 7/10; 17:22 BP 121 / 71; Pulse 88; Resp 17; Pulse Ox 99% on R/A; ll1 14:30 Body Mass Index 32.87 (116.12 kg, 187.96 cm) cm10 14:30 Pain Scale: Adult cm10 MDM: 14:52 Medical Screening Exam initiated bo1 16:39 Differential Diagnosis Allergic reaction, sulfa sensitivity. GERD, reflux. Data bo1 reviewed: vital signs, old medical records, HIV and atypical pneumonia. ED course: Better after the Reglan IV. Alternative abx to be prescribed. Pt to discontinue the Bactrim DS.. 09/15 15:35 Order name: CBC with Diff; Complete Time: 16:35 bo1 09/15 16:31 Order name: Manual Differential; Complete Time: 16:35 EDMS 09/15 15:35 Order name: Saline Lock; Complete Time: 15:35 bo1 Administered Medications: 15:49 Drug: metoCLOPramide IVP 20 mg IVP once; over 15 mins Route: IVP; Site: right ll1 antecubital; 16:21 Follow up: Response: No adverse reaction; Nausea is decreased; RASS: Alert and Calm (0) ll1 Disposition Summary: 09/15/24 16:49 Discharge Ordered Notes: Location: Home bo1 Problem: new bo1 Symptoms: have improved bo1 Condition: Stable bo1 Diagnosis - Rash and other nonspecific skin eruption bo1 - Allergy, unspecified - to Bactrim DS bo1 - Other pneumonia, unspecified organism bo1 - Viral infection, unspecified bo1 - Gastro-esophageal reflux disease without esophagitis bo1 Followup: bo1 - With: Private Physician - When: Upon discharge from the Emergency Department - Reason: Recheck today's complaints, Continuance of care Discharge Instructions: - Discharge Summary Sheet bo1 - Drug Rash bo1 - Gastroesophageal Reflux Disease, Adult, [id number] bo1 Forms: - Medication Reconciliation Form bo1 - Antibiotic Education bo1 - Prescription Opioid Use bo1 - Patient Portal Instructions bo1 - Leadership Thank You Letter bo1 Prescriptions: - metoclopramide HCl 10 mg Oral tablet - take 1 tablet ORAL route before meals administer 30 minutes before meals; 40 bo1 tablet; Refills: 0, Product Selection Permitted - primaquine 26.3 mg (15 mg base) Oral tablet - take 1 tablet ORAL route daily for 14 days; 14 tablet; Refills: 0, Product bo1 Selection Permitted - Clindamycin HCl 300 mg Oral capsule - take 1 capsule ORAL route every 6 hours for 14 days; 56 capsule; Refills: 0, bo1 Product Selection Permitted Signatures: Dispatcher [employer] EDLeona Rosa RN RN ll1 Leslie Concepcion RN RN cm10 Oei, MD ROB Rhoades bo1 Corrections: (The following items were deleted from the chart) 14:33 14:32 Social history: Smoking status: Patient denies any tobacco usage or history of. cm10 cm10 15:35 15:35 CBC+H.LAB.BRZ ordered. EDMS EDMS 16:31 16:06 CBC Smear Scan ordered. EDMS EDMS
--- NOTE | 2024-09-15 16:49 | ER ---
Nurse's Notes [facility] Name: Michael Degroot Age: 38 yrs Sex: Male : 1985 Arrival Date: 09/15/2024 Time: 13:54 Bed 15 Private MD: Diagnosis: Rash and other nonspecific skin eruption;Allergy, unspecified-to Bactrim DS;Other pneumonia, unspecified organism;Viral infection, unspecified;Gastro-esophageal reflux disease without esophagitis Presentation: 09/15 14:30 Chief complaint: Patient states: Abdominal pain and constipation since yesterday. PT cm10 states that he drank milk of magnesium and approximately 2-3hrs later his face got itchy and red. Pt also taking bactrim and prednisone for pneumonia. Coronavirus screen: Client denies travel out of the [place] in the last 14 days. Ebola Screen: Patient denies travel to an Ebola-affected area in the 21 days before illness onset. No symptoms or risks identified at this time. Initial Sepsis Screen: Does the patient meet any 2 criteria? HR > 90 bpm. Does the patient have a suspected source of infection? No. Patient's initial sepsis screen is negative. Risk Assessment: Do you want to hurt yourself or someone else? Patient reports no desire to harm self or others. Onset of symptoms was September 15, 2024. 14:30 Method Of Arrival: Ambulatory cm10 14:30 Acuity: DARVNI 3 cm10 Triage Assessment: 14:33 General: Appears in no apparent distress. comfortable, Behavior is calm, cooperative. cm10 Neuro: No deficits noted. Level of Consciousness is awake, alert, obeys commands, Oriented to person, place, time, situation, Appropriate for age. Respiratory: No deficits noted. Airway is patent Respiratory effort is even, unlabored, Respiratory pattern is regular, symmetrical. 17:23 Pain: Denies pain. ll1 Historical: - Allergies: 14:32 No Known Allergies; cm10 - PMHx: 14:32 Hepatitis; HIV positive; cm10 - PSHx: 14:32 None; cm10 - Immunization history:: Adult Immunizations up to date. - Infectious Disease History:: Denies. - Social history:: Pt reports prior drug use and hx of bisexual behavior, Smoking status: Patient reports use of chewing tobacco. Patient denies any tobacco usage or history of. Screenin:04 [facility] ED Fall Risk Assessment (Adult) History of falling in the last 3 months, ll1 including since admission No falls in past 3 months (0 pts) Confusion or Disorientation No (0 pts) Intoxicated or Sedated No (0 pts) Impaired Gait No (0 pts) Mobility Assist Device Used No (0 pt) Altered Elimination No (0 pt) Score/Fall Risk Level 0 - 2 = Low Risk Maintained a safe environment, Hourly rounding (assess needs \T\ fall precautionary measures) done. Abuse screen: Denies threats or abuse. Nutritional screening: No deficits noted. Tuberculosis screening: No symptoms or risk factors identified. Assessment: 15:04 Reassessment: Gait steady to restroom. ll1 15:25 Reassessment: Dr. Schreiber at . ll1 16:21 Reassessment: No changes from previously documented assessment. Patient and/or family ll1 updated on plan of care and expected duration. Pain level reassessed. Patient is alert, oriented x 3, equal unlabored respirations, skin warm/dry/pink. Patient states feeling better. 17:23 Reassessment: No changes from previously documented assessment. Patient and/or family ll1 updated on plan of care and expected duration. Pain level reassessed. Patient is alert, oriented x 3, equal unlabored respirations, skin warm/dry/pink. Patient states feeling better. Patient states symptoms have improved. Vital Signs: 14:30 BP 128 / 79; Pulse 102; Resp 18; Temp 98.1(O); Pulse Ox 99% on R/A; Weight 116.12 kg; cm10 Height 6 ft. 2 in. ; Pain 7/10; 17:22 BP 121 / 71; Pulse 88; Resp 17; Pulse Ox 99% on R/A; ll1 14:30 Body Mass Index 32.87 (116.12 kg, 187.96 cm) cm10 14:30 Pain Scale: Adult cm10 ED Course: 13:57 Patient arrived in ED. ra3 14:32 Triage completed. cm10 14:33 Leona Kaminski, RN is Primary Nurse. ll1 14:33 Arm band placed on right wrist. Patient placed in an exam room, on a stretcher. cm10 14:52 Jf Schreiber MD is Attending Physician. bo1 15:05 Patient has correct armband on for positive identification. Bed in low position. ll1 Cardiac monitoring not applicable on this patient. 15:10 Warm blanket given. ll1 17:23 Provided Education on: return to ED for worsening symptoms. ll1 17:23 No provider procedures requiring assistance completed. IV discontinued, intact, ll1 bleeding controlled, No redness/swelling at site. Pressure dressing applied. Administered Medications: 15:49 Drug: metoCLOPramide IVP 20 mg IVP once; over 15 mins Route: IVP; Site: right ll1 antecubital; 16:21 Follow up: Response: No adverse reaction; Nausea is decreased; RASS: Alert and Calm (0) ll1 Medication: 15:05 VIS not applicable for this client. ll1 Outcome: 16:49 Discharge ordered by . bo1 17:23 Discharged to home ambulatory, ll1 17:23 Condition: stable 17:23 Discharge instructions given to patient, Instructed on discharge instructions, follow up and referral plans. medication usage, Demonstrated understanding of instructions, follow-up care, medications, Prescriptions given X 3, 17:23 Patient left the ED. ll1 Signatures: Leona Kaminski RN RN ll1 Leslie Concepcion RN RN cm10 Isabella Gaviria ra3 Jf Schreiber MD MD bo1 Corrections: (The following items were deleted from the chart) 14:32 14:30 Chief complaint: Patient states: Abdominal pain and constipation since yesterday. cm10 PT states that he drank milk of magnesium and approximately 2-3hrs later his face got itchy and red. cm10 14:33 14:32 Social history: Smoking status: Patient denies any tobacco usage or history of. cm10 cm10
[2024-09-15 17:43] VITALS: TEMP 98.1; O2SAT 99
[2024-09-15 17:44] VITALS: BP 121/71
== END 2024-09-15 17:23 | disposition home or self-care (01) ==
LOC: ER 13:54
DX: J18.8 Other pneumonia, unspecified organism (principal); B34.9 Viral infection, unspecified; K21.9 Gastro-esophageal reflux disease without esophagitis; Z88.1 Allergy status to other antibiotic agents; F17.220 Nicotine dependence, chewing tobacco, uncomplicated; Z21 Asymptomatic human immunodeficiency virus [HIV] infection status
CPT/HCPCS: 85025; 36415; J2765

== ENCOUNTER 2024-10-11 18:11 | Emergency (ER) | payer OTHER ==
--- OUTSIDE RECORDS SUMMARY | 2024-10-11 18:16 | XMS REPORT | Continuity of Care Document ---
Author Name Unknown Address [address] [facility] [address] [place] [address] [facility] thconnect Address [address] [facility] [address] [place] [address] Care Team Providers Care Bonded Strand Operator Name Role Phone PCP, PATIENT DOES NOT HAVE A Primary Care Physic amie Unavailable VANDANA CHAVIS Attending Clinician Unavailable ERICA OLSON Attending Clinician Unavailable [id number] Attending Clinician Unavailable JASWINDER NUNEZ Attending Clinician Unavailabl e NT90 Attending Clinician Unavailable BHARTAH AARON Attending Clinician Unavailable BHARATH AARON Attending Clinician Unavailable Bharath Aaron PA-C Attending Clinician [phone] Elidia Vazquez RN Attending Clinician Heather ilKACI Manning Attending Clinician Unavailable Kaci Chris Attending Clinician [phone] [facility] Attending Clinician Pipo Sams MD Attending Clinician [phone] BHARATH AARON Admitting Clinician Unavailable KACI KILGORE Admitting Clinician Unavailable Payers Payer Name Policy Type Policy Number Effective Date Expirati on Date Source AETNA MP [employer] [employer] H[employer]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 94 ON 9 [id number] 2024 00:00:00 [employer] 2 [id number] 2024 00:00:00 MEDICAID GENERIC [id number] 2017 00:00:00 2024 00:00:00 Problems Condition Name Condition Details Condition Category Status Onset Date Resolution Date Last Treatment Date Treating Clinician Comments Source Chronic hepatitis C without hepatic coma (multi HCC) Chronic hepatitis C without hepatic coma (multi HCC) Disease Active 2023-10 00:00: 00 Ree Odonnell - Externa l Pneumonia of right lower lobe due to Pneumocyst is jirovecii (multi HCC) Pneumonia of right lower lobe due to Pneumocyst is jirovecii (multi HCC) Disease Active 2023-10 00:00: 00 Ree Odonnell - Externa l Hospital discharge follow-up Hospital discharge follow-up Disease Active 2023-10 00:00: 00 Ree Odonnell - Externa l No known active problems No known active problems Disease [facility] Hepatitis C Hepatitis C Disease Active Ree Odonnell - Externa l History of narcotic addiction (multi HCC) History of narcotic addiction (multi HCC) Disease Active Ree Odonnell - Externa l Allergies, Adverse Reactions, Alerts Allergy Name Allergy Type Status Severity Reaction(s) Onset Date Inactive Date Treating Clinician Comments Source NO KNOWN ALLERGIE S Drug Class Active [facility] Social History Social Habit Start Date Stop Date Quantity Comments Source Sexual orientation Julieth romain Odonnell - External History of Occupation Ree Odonnell - External History of tobacco use Snuff User Ree Odonnell - External Alcoholic beverage intake 2024-10-03 00:00:00 2024-10-03 00:00:00 Ex-drinker (finding) Ree Odonnell - External [...] 2024-09-10 00:00:00 User of smokeless tobacco Ree Blas - External Sex 2024-08-31 11:07:28 2024-08-31 11:07:28 Male (finding) Ree Escalantemk Jameel External Sex assigned at 1985 00:00:00 1985 00:00:00 Ree Blas Jorgensen External Smoking Status Start Date Stop Date Source Ex-smoker 2024-09-10 00:00:00 2024-09-10 00:00:00 Julieth hoyos Semk - External Medications Ordered Medication Name Filled Medication Name Start Date Stop Date Current Medication? Ordering Clinician Indication Dosage Frequency Signature (SIG) Comments Components Source KETOCONAZOL E, TOPICAL, 2 % apply externally Shampoo 2023-10 00:00: 00 Yes [id number] 10mL Apply 10 mL topically twice a week. Ree powell Ibuprofen (MOTRIN) 200 MG oral Tablet 2023-10 08:22: 12 Yes 200mg Q.25D Take 1 tablet (200 mg total) by mouth every 6 hours as needed for pain. Ree powell Clindamycin HCl 300 MG oral Capsule 2023-10 08:22: 12 Yes [id number] 300mg QD Take 1 capsule (300 mg total) by mouth daily Take 1 capsule by mouth every 6 hours for 14 days. Ree powell Primaquine Phosphate 26.3 (15 Base) MG oral Tablet 2023-10 08:22: 12 Yes [id number] 26.3mg Take 26.3 mg by mouth once Take 1 tablet by mouth every day fr 14 days. Ree powell Metoclopram tomás HCl 10 MG oral Tablet 2023-10 08:22: 12 Yes [id number] 10mg Take 1 tablet (10 mg total) by mouth once Take 1 tablet by mouth 30 minutes before meals . Ree powell TRIMETHOPRI M-SULFAMETH OXAZOLE (Bactrim DS) 800-160 MG oral Tablet 2023-10 00:00: 00 01-02 04:59 :00 Yes [id number] 1{tbl} Take 1 tablet by mouth three times a week. Ree powell Bictegravir -Emtricitab -Tenofov (Biktarvy) 50-200-25 MG oral Tablet 2023-10 00:00: 00 11-03 05:59 :00 Yes [id number] 1{tbl} QD Take 1 tablet by mouth daily. Ree powell Ibuprofen (MOTRIN) 200 MG oral Tablet 2023-10 11:22: 42 Yes 200mg Q.25D Take 1 tablet (200 mg total) by mouth every 6 hours as needed for pain. Ree powell TRIMETHOPRI M-SULFAMETH OXAZOLE (BACTRIM DS) 800-160 MG oral Tablet 2023-10 00:00: 00 10-03 00:00 :00 No [id number] 1{tbl} Q.5D Take 1 tablet by mouth 2 times daily. Ree powell predniSONE (DELTASONE) 20 MG oral tablet 2023-10 00:00: 00 10-03 00:00 :00 No [id number] 20mg QD Take 1 tablet (20 mg total) by mouth daily. Ree powell Albuterol Sulfate 1.25 MG/3ML inhalation Inhalant Solution 2023-10 00:00: 00 Yes [id number] 1.25mg Q.25D Take 3 mL (1.25 mg total) by nebulizati on every 6 hours as needed for shortness of breath (pneumonia ). Ree powell ibuprofen (IBU) tablet 600 mg 2023-10 17:45: 00 08-06 17:38 :00 No 600mg 600 mg, Oral, ONCE, 1 dose, [facility] Tue08/06/24 at 1245[facility]PROVENTIL[facility] 2.5 mg /3 mL (0.083 %) nebulizer solution 2.5 mg 2023-10 14:30: 00 08-06 14:37 :00 No 2.5mg 2.5 mg, Inhalation , ONCE, 1 dose, On Tue08/06/24 at 0930, STAT [facility] dexamethaso ne sod phos PF injection 10 mg 2023-10 14:30: 00 08-06 14:35 :00 No 10mg 10 mg, Intramuscu lar, ONCE, 1 dose, On Tue08/06/24 at 0930, 1 mL [facility] Albuterol HFA 108 (90 Base) MCG/ACT IN AERS 2023-10 00:00: 00 Yes [id number] 2{puff} Q4H Inhale 2 puffs into the lungs every 4 hours as needed. Ree Odonnell - Externa l azithromyci n 250 mg tablet 2023-10 00:00: 00 08-12 04:59 :00 Yes [id number] Take 2 tablets by mouth daily for 1 day, THEN 1 tablet daily for 4 days. [facility] albuterol (VENTOLIN HFA) 90 mcg/actuati on inhaler 01-30 00:00: 00 03-02 04:59 :00 No [id number] 2{puff} Inhale 2 Puffs every 6 (six) hours as needed for Shortness of Breath or Chest tightness for up to 30 days. [facility] bromphenira mine-pseudo ephedrine-D M (BROMFED DM) 2-30-10 mg/5 mL syrup 01-30 00:00: 00 02-10 04:59 :00 No [id number] 5mL Take 5 mL by mouth 4 (four) times daily as needed for Congestion /Allergies or Cough for up to 10 days. [facility] Vital Signs Vital Name Observation Time Observation Value Comments S ourmarkus Systolic blood pressure 2024-10-03 14:16:00 110 mm[Hg] Ree palacios - External Diastolic blood pressure 2024-10-03 14:16:00 62 mm[Hg] Ree palacios - External Heart rate 2024-10-03 14:16:00 90 /min Neelam Odonnell - External Body temperature 2024-10-03 14:16:00 36.61 Janet Ree Odonnell - External Respiratory rate 2024-10-03 14:16:00 21 /min Ree Seybold - External Body height 2024-10-03 14:16:00 188 cm Kika ey Seybold - External Body weight 2024-10-03 14:16:00 117.935 kg Kika ey Seybold - External BMI 2024-10-03 14:16:00 33.38 kg/m2 Kika ey Seybold - External Oxygen saturation in Arterial blood by Pulse oximetry 2024-10-03 14:16:00 98 /min Ree Seybo ld - External Systolic blood pressure 2024-09-10 17:25:00 118 mm[Hg] Ree Seybo ld - External Diastolic blood pressure 2024-09-10 17:25:00 78 mm[Hg] Ree Seybo ld - External Heart rate 2024-09-10 17:25:00 88 /min Neelam y Seybold - External Body temperature 2024-09-10 17:25:00 37 Janet Ree Seybold - External Body height 2024-09-10 17:25:00 188 cm Kika ey Seybold - External Body weight 2024-09-10 17:25:00 116.121 kg Kika ey Seybold - External BMI 2024-09-10 17:25:00 32.87 kg/m2 Kika ey Seybold - External Oxygen saturation in Arterial blood by Pulse oximetry 2024-09-10 17:25:00 98 /min Ree Escalanteybo ld - External Systolic blood pressure 2024-08-06 17:38:00 124 mm[Hg] [facility] Diastolic blood pressure 2024-08-06 17:38:00 78 mm[Hg] [facility] Heart rate 2024-08-06 17:38:00 91 /[facility] Oxygen saturation in Arterial blood by Pulse oximetry 2024-08-06 17:38:00 96 /min [facility] Respiratory rate 2024-08-06 14:48:00 16 /min [facility] Body temperature 2024-08-06 13:54:00 36.89 Janet [facility] Body height 2024-08-06 13:54:00 188 cm [facility] Body weight 2024-08-06 13:54:00 117.935 kg [facility] BMI 2024-08-06 13:54:00 33.38 kg/m2 [facility] Diastolic blood pressure 2020-01-31 20:31:00 81 mm[Hg] [facility] Heart rate 2020-01-31 20:31:00 98 /min [facility] Body temperature 2020-01-31 20:31:00 37.44 Janet [facility] Respiratory rate 2020-01-31 20:31:00 22 /min [facility] Body height 2020-01-31 20:31:00 188 cm [facility] Body weight 2020-01-31 20:31:00 104.327 kg [facility] BMI 2020-01-31 20:31:00 29.53 kg/m2 [facility] Oxygen saturation in Arterial blood by Pulse oximetry 2020-01-31 20:31:00 99 /min [facility] Systolic blood pressure 2020-01-31 20:31:00 128 mm[Hg] [facility] Diastolic blood pressure 2020-01-31 20:31:00 81 mm[Hg] [facility] Heart rate 2020-01-31 20:31:00 98 /min [facility] Body temperature 2020-01-31 20:31:00 37.44 Janet [facility] Respiratory rate 2020-01-31 20:31:00 22 /min [facility] Body height 2020-01-31 20:31:00 188 cm [facility] Body weight 2020-01-31 20:31:00 104.327 kg [facility] BMI 2020-01-31 20:31:00 29.53 kg/m2 [facility] Oxygen saturation in Arterial blood by Pulse oximetry 2020-01-31 20:31:00 99 /min [facility] Systolic blood pressure 2020-01-31 20:31:00 128 mm[Hg] [facility] Procedures Procedure Date / Time Performed Performing Clinicia n Source CT THORAX WO CONTRAST 2024-08-06 15:50:25 Abilio Aaron [facility] XR CHEST 2 VW 2024-08-06 15:00:30 Bharath Aaron [facility] COMP. METABOLIC PANEL ([id number]) 2024-08-06 14:31:00 Bharath Aaron [facility] CBC WITH DIFF 2024-08-06 14:31:00 Bharath Aaron [facility] COVID-19 (ID NOW RAPID TESTING) 2024-08-06 14:31:00 Bharath Aaron [facility] XR CHEST 2 VW COVID 2020-01-31 21:20:02 Kaci Kilgore [facility] Encounters Start Date/Time End Date/Time Encounter Type Admission Type Attending [facility] Facility Care Department Encounter ID Source 2024-12-05 10:00:00 2024-12-05 10:00:00 Outpatient VANDANA CHAVIS [id number] [facility] 2024-10-29 16:00:00 2024-10-29 16:00:00 Outpatient ERICA OLSON [id number] [facility] 2024-10-29 11:15:00 2024-10-29 11:15:00 Outpatient ERICA OLSON [id number] [facility] 2024-10-11 00:00:00 2024-10-11 00:00:00 Outpatient VANDANA CHAVIS [id number] [facility] 2024-10-08 00:00:00 2024-10-08 00:00:00 Outpatient VANDANA CHAVIS [id number] [facility] 2024-10-03 09:35:00 2024-10-03 09:35:00 Outpatient LABEduin EVERETT [id number] [facility] 2024-10-03 08:00:00 2024-10-03 08:00:00 Outpatient VANDANA CHAVIS [id number] [facility] 2024-10-01 00:00:00 2024-10-01 00:00:00 Outpatient JASWINDER MORRIS [facility] [id number] [facility] 2024-09-13 00:00:00 2024-09-13 00:00:00 Outpatient [facility] [id number] [facility] 2024-09-11 00:00:00 2024-09-11 00:00:00 Outpatient REE EVERETT [id number] [facility] 2024-09-10 11:30:00 2024-09-10 11:30:00 Outpatient [facility] [id number] [facility] 2024-09-03 11:15:00 2024-09-03 11:15:00 Outpatient NT90 REE EVERETT [id number] [facility] 2024-08-06 08:55:00 2024-08-06 12:46:00 Emergency X BHARATH AARON [facility] [id number] [facility] 2024-08-06 08:55:00 2024-08-06 12:46:00 Emergency Bharath Aaron [facility] [id number] [facility] 2024-01-26 15:45:39 2024-01-26 15:45:39 Outpatient [facility] [id number] Jonatan Martinez 2020-02-01 00:00:00 2020-02-01 00:00:[facility] [id number] 2020-02-01 00:00:00 2020-02-01 00:00:[facility] [id number] [facility] 2020-01-31 16:04:18 2020-01-31 23:59:00 Outpatient KACI BROWNE [facility] [id number] [facility] 2020-01-31 16:04:00 2020-01-31 23:59:00 Hospital Encounter Kaci Kilgore [facility] [id number] 2020-01-31 16:04:00 2020-01-31 23:59:00 Hospital Encounter Kaci Kilgore [facility] [id number] [facility] 2020-01-31 15:20:10 2020-01-31 15:40:10 Urgent Care Po, Acute Care [facility] [address] [id number] 2020-01-31 15:20:10 2020-01-31 15:40:10 Urgent Care Pob1, Acute Care Clinic Pipo Recio [facility] [address] [id number] [facility] Results Test Description Test Time Test [...] grossly within normallimits on this noncontrast CT. [facility] XR CHEST 2 VW 2024-07-24 4 15:12:21 EXAM: XR CHEST 2 VW [...] aerated. Normal heart size.No acute osseous abnormality. [facility] [id number] 21:32:391. No acute intrathoracic abnormality, specifically no detectableradiographic findings to suggest COVID-19 pneumonia. Disclaimer: Generally, the findings on chest imaging in COVID-19 are notspecific,and overlap with other infections, including influenza, H1N1,SARS and MERS.According to the Centersfor Disease Control (CDC) and the [employer], viral testing remains the only [...] Centers for Disease Control (CDC) and the [place] [employer], viral testingremains the only specific method of diagnosiseven if CXR or CT findings are suggestive of COVID-19.[facility] [id number] 18:05:50* Test Item Value Reference Range Interpretation Comme nts RPR Qual (test code = RPR Qual) Non-Reactive Non-Reactive Reactive Control (test code = Reactive Control) Reactive Weak Reactive Control (test code = Weak Reactive Control) Weak Reactive Non-Reactive Control (test c ode = Non-Reactive Control) Non-Reactive Lot # (test code = Lot #) [id number] N Expiration Dt (test code = Expiration Dt) 4.30.20 N Thyroid Stimulating [id number] 07:26:09* Test Item Value Reference Range Interpretation Comme nts TSH (test code = TSH) 1.610 mIU/mL 0.270-4.200 Lipid [id number] 07:06:07* Test Item Value Reference Range Interpretation Comme nts Cholesterol Total (test code = Cholesterol Total) 129 mg/dL 0-200 RISK OF HEART DISEASEPublished by [place] Heart Association Analyte Optimal Borderline Increased RiskCHOL [...] is LDL/HDL Ratio=LDL Calc/HDL Chol Comprehensive Metabolic [id number] 07:01:50* Test Item Value Reference Range Interpretation [...] A/G Ratio) 1.6 ratio N Comprehensive Metabolic [id number] 07:01:50* Test Item Value Reference Range Interpretation [...] is not provided, and the patient is -[place], multiply by 1.212. If sex is not [...] by the National Kidney Foundation, http://nkdep.nih.gov Alcohol [id number] 07:01:50* Test Item Value Reference Range Interpretation Comme nts Ethanol Level (test code = Ethanol Level) <0.00 g/dL 0.00-0.01 Intoxicated 0.08 0 g/dL or more Ethanol Inst (test code = Ethanol Inst) <0 N Comprehensive Metabolic [id number] 07:01:50* Test Item Value Reference Range Interpretation [...] is not provided, and the patient is -[place], multiply by 1.212. If sex is not [...] is not provided, and the patient is -[place], multiply by 1.212. If sex is not [...] Kidney Foundation, http://nkdep.nih.gov Complete Blood Count with [id number] 06:45:50* Test Item Value Reference Range Interpretation [...] code = IPF) 0 % N Automated [id number] 06:45:50* Test Item Value Reference Range Interpretation Comme nts Neutro Auto (test code = [place] tro Auto) 42.3 % 36.0-70.0 Lymph Auto (test code = Lymph Auto) 49.9 % 12.0-44.0 H [place] Auto (test code = [place] Auto) 4.9 % 0.0-11.0 Eos, Auto (test code = Eos, Auto) 2.5 % 0.0-7.0 Basophil Auto (test code = B asophil Auto) 0.2 % 0.0-2.0 Neutro Absolute (test code = Neutro Absolute) 2.2 x10 1.6-7.4 Lymph Absolute (test code = Lymph Absolute) 2.64 x10 .50-4.60 [place] Absolute (test code = M tavo Absolute) .26 x10 .00-1.20 Eos Absolute (test code = Eo s Absolute) 0.13 x10 0.00-0.74 Baso Absolute (test code = B aso Absolute) 0.01 x10 0.00-0.21 IG [id number] 06:45:50* Test Item Value Reference Range Interpretation Comme nts IG (test code = IG) 0.2 % 0.0-5.0 IG Abs (test code = IG Abs) 0 x10 N
[2024-10-11 19:16] LABS: Absolute Eosinophils 0.1 K/uL (0-0.5); Absolute Lymphocytes (CBC) 0.8 K/uL (0.7-4.9); Absolute Monocytes 0.5 K/uL (0.1-1.3); Absolute Neutrophil 2.9 K/uL (1.8-8.0); Basophils % 1.1 % (0-1.3); Hematocrit 36.2 % (39.6-49.0); Hemoglobin 12.4 g/dL (13.6-17.9); Lymphocytes % 18.5 % (15.3-44.8); MCH 30.2 pg (27.0-35.0); MCHC 34.2 g/dL (32.0-36.0); MCV 88.4 fL (80-100); MPV 7.8 fL (7.6-11.3); Monocytes % 11.5 % (3.3-12.3); Neutrophils % 66.9 % (41.7-73.7); Nucleated Red Blood Cells % 0.3 % (0-0); Platelets 190 thou/uL (152-406); RBC Red Blood Cell Count 4.09 M/uL (4.33-5.43); Red Cell Distribution Width 17.2 % (12.1-15.2)
[2024-10-11 19:43] LABS: Albumin 2.7 g/dL (3.4-5.0); Albumin/Globulin Ratio 0.7 (1.1-1.8); Anion Gap 8.1 mEq/L (5.0-15.0); Bilirubin Direct 0.2 mg/dL (0-0.2); Bilirubin Indirect, Calculated 0.6 mg/dL (0.2-0.8); Bilirubin Total 0.8 mg/dL (0.2-1.0); Globulin 3.9 g/dL (2.3-3.5); Magnesium 1.9 mg/dL (1.6-2.4); Potassium 3.1 mEq/L (3.5-5.1); Protein, Total 6.6 g/dL (6.4-8.2)
--- NOTE | 2024-10-11 19:46 | EDPHYS ---
Physician Documentation [facility] Name: Michale Degroot Age: 38 yrs Sex: Male : 1985 Arrival Date: 10/11/2024 Time: 18:11 Bed 6 Private MD: ED Physician Khurram العراقي HPI: 10/11 19:07 This 38 yrs old Male presents to ER via Ambulatory with complaints of Allergic sp3 Reaction, Facial Swelling, Trouble Talking. 19:07 38-year-old male with recent diagnosis of HIV and hepatitis recently placed on Bactrim sp3 after prior allergic reaction for PJP pneumonia by infectious disease at [facility] now presents to the ED with chief complaint possible allergic reaction last night upon taking his first tablet. Patient states that he felt flushed and red and had hives which have all now self resolved. He also had a shaking episode. Currently he feels back to normal other than some mild flushing on the face. No difficulty swallowing, breathing or airway swelling reported. He denies any current fever, airway difficulty, chest pain, shortness of breath, significant cough, back pain, abdominal pain, nausea, vomiting, diarrhea, syncope, near syncope, rash, bleeding, or any other signs or symptoms on ROS at this time.. Historical: - Allergies: 18:24 No Known Allergies; db - PMHx: 18:24 Hepatitis; HIV positive; db - Immunization history:: Adult Immunizations unknown. - Infectious Disease History:: Denies. - Social history:: Smoking status: Patient reports use of chewing tobacco. ROS: 19:08 Constitutional: Negative for fever, chills, and weight loss, Eyes: Negative for injury, sp3 pain, redness, and discharge, ENT: Negative for injury, pain, and discharge, Neck: Negative for injury, pain, and swelling, Cardiovascular: Negative for chest pain, palpitations, and edema, Respiratory: Negative for shortness of breath, cough, wheezing, and pleuritic chest pain, Abdomen/GI: Negative for abdominal pain, nausea, vomiting, diarrhea, and constipation, Back: Negative for injury and pain, MS/Extremity: Negative for injury and deformity, Neuro: Negative for headache, weakness, numbness, tingling, and seizure, Psych: Negative for depression, anxiety, suicide ideation, homicidal ideation, and hallucinations, Endocrine: Negative for neck swelling, polydipsia, polyuria, polyphagia, and marked weight changes, Hematologic/Lymphatic: Negative for swollen nodes, abnormal bleeding, and unusual bruising, 19:08 All other systems are negative, Exam: 19:09 Constitutional: This is a well developed, well nourished patient who is awake, alert, sp3 and in no acute distress. Head/Face: Normocephalic, atraumatic. Eyes: Pupils equal round and reactive to light, extra-ocular motions intact. Lids and lashes normal. Conjunctiva and sclera are non-icteric and not injected. Cornea within normal limits. Periorbital areas with no swelling, redness, or edema. ENT: Nares patent. No nasal discharge, no septal abnormalities noted. External auditory canals are clear. Oropharynx with no redness, swelling, or masses, exudates, or evidence of obstruction, uvula midline. Mucous membranes moist. Neck: Trachea midline, no thyromegaly or masses palpated, and no cervical lymphadenopathy. Supple, full range of motion without nuchal rigidity, or vertebral point tenderness. No Meningismus. Chest/axilla: Normal chest wall appearance and motion. Nontender with no deformity. No lesions are appreciated. Cardiovascular: Regular rate and rhythm with a normal S1 and S2. No gallops, murmurs, or rubs. Normal PMI, no JVD. No pulse deficits. Respiratory: Lungs have equal breath sounds bilaterally, clear to auscultation and percussion. No rales, rhonchi or wheezes noted. No increased work of breathing, no retractions or nasal flaring. Abdomen/GI: Soft, non-tender, with normal bowel sounds. No distension or tympany. No guarding or rebound. No evidence of tenderness throughout. Back: No spinal tenderness. No costovertebral tenderness. Full range of motion. Skin: Warm, dry with normal turgor. Normal color with no rashes, no lesions, and no evidence of cellulitis. MS/ Extremity: Pulses equal, no cyanosis. Neurovascular intact. Full, normal range of motion. Neuro: Awake and alert, GCS 15, oriented to person, place, time, and situation. Cranial nerves II-XII grossly intact. Motor strength 5/5 in all extremities. Sensory grossly intact. Cerebellar exam normal. Normal gait. Psych: Awake, alert, with orientation to person, place and time. Behavior, mood, and affect are within normal limits. 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 Vital Signs: 18:22 BP 101 / 61; Pulse 89; Resp 16; Temp 98.6; Pulse Ox 98% ; Weight 117.93 kg; Height 6 db ft. 2 in. ; Pain 0/10; 18:32 BP 116 / 72; Pulse 98; Resp 16; Pulse Ox 97% on R/A; MAP 85 mmHg; Pain 0/10; tm6 19:50 BP 108 / 90; Pulse 86; Resp 16; Pulse Ox 100% on R/A; al5 18:22 Body Mass Index 33.38 (117.93 kg, 187.96 cm) db 18:22 Pain Scale: Adult db 18:32 Pain Scale: Adult tm6 MDM: 18:22 Medical Screening Exam initiated sp3 19:09 Data reviewed: vital signs, nurses notes, lab test result(s), radiologic studies. ED sp3 course: 38-year-old male with probable resolved allergic reaction yesterday to Bactrim. Patient clinically not in any signs of respiratory distress, allergic reaction or anaphylaxis. Vital signs are normal. Will obtain chest x-ray and general labs and if negative discharge patient home. IVC patient will not take any more Bactrim and he will follow-up with his infectious disease doctor and PCP at [facility]. We will hold on any prednisone given his history at this time. I do not think it is indicated regardless.. 19:44 ED course: Workup negative with no significant findings. Will discharge patient home sp3 with same plan and follow-up with infectious disease. No steroids indicated and patient will no longer take Bactrim.. 10/11 18:44 Order name: Basic Metabolic Panel; Complete Time: 19:44 sp3 10/11 18:44 Order name: CBC with Diff; Complete Time: 19:44 sp3 10/11 18:44 Order name: LFT's; Complete Time: 19:44 sp3 10/11 18:44 Order name: Magnesium; Complete Time: 19:44 sp3 10/11 18:44 Order name: XRAY Chest (1 view) sp3 10/11 18:44 Order name: Cardiac monitoring; Complete Time: 19:59 sp3 10/11 18:44 Order name: IV Saline Lock; Complete Time: 19:08 sp3 10/11 18:44 Order name: Labs collected and sent; Complete Time: 19:08 sp3 10/11 18:44 Order name: O2 Sat Monitoring; Complete Time: 19:08 sp3 Administered Medications: No medications were administered Disposition Summary: 10/11/24 19:45 Discharge Ordered Notes: Location: Home sp3 Condition: Stable sp3 Diagnosis - Allergic reaction, PJP pneumonia, HIV sp3 Followup: sp3 - With: Private Physician - When: Upon discharge from the Emergency Department - Reason: Continuance of care Discharge Instructions: - Discharge Summary Sheet sp3 - HIV Infection and AIDS sp3 Forms: - Medication Reconciliation Form sp3 - Antibiotic Education sp3 - Prescription Opioid Use sp3 - Patient Portal Instructions sp3 - Leadership Thank You Letter sp3 Signatures: Dispatcher [employer] Khurram iRco MD MD sp3 Sonia Chan RN RN db
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
--- NOTE | 2024-10-11 20:18 | RAD REPORT ---
Procedure: Chest Single View HISTORY: Cough COMPARISON: September 24, 2024 FINDINGS: Moderate bilateral interstitial opacities unchanged Small medial right lower lobe opacity unchanged No significant pleural effusion noted. The heart is normal size. IMPRESSION: No significant change in bilateral pulmonary opacities probably infectious
[2024-10-11 20:59] VITALS: TEMP 98.6
[2024-10-11 21:02] VITALS: BP 108/90; O2SAT 100
== END 2024-10-11 20:08 | disposition home or self-care (01) ==
LOC: ER 18:11
DX: B59 Pneumocystosis (principal); B20 Human immunodeficiency virus [HIV] disease; T36.8X5A Adverse effect of other systemic antibiotics, initial encounter; F17.290 Nicotine dependence, other tobacco product, uncomplicated
CPT/HCPCS: 36415; 71045; 80048; 80076; 83735; 85025; 99284